=== PATIENT | male | born 1950 | race Caucasian/White ===

== ENCOUNTER → 2017-10-23 | Day surgery (SDC) | payer BC, OTHER ==
[~2017-10-23] VITALS: Ht 188 cm; Wt 89.0 kg
[~2017-10-23] MED LIST: ACETAMINOPHEN 325 MG TAB PO PRN; ASPI325T45 PO; ATROPINE SULFATE 0.1 MG/ML 5ML SYR IV PRN; CLR10 PO; FENTANYL CITRATE INJ 50 MCG/1 ML 2 ML VIAL ONE; HEPARIN SOD (PORCINE) 1000 UNIT/ML 10 ML VIAL ONE; LISI-461 PO; LISINOPRIL 5 MG TAB ONE; LPR50X; METO-217 PO; MIDAZOLAM HCL 1 MG/ML 2ML VIAL ONE; NITROGLYCERIN/D5W 100MCG/ML 20ML SYR ONE; NiCARDipine HCL INJ 2.5 MG/ML 10 ML AMP ONE; SODIUM CHLORIDE 0.9% 1000ML 1,000 ML IV SCH; SODIUM CHLORIDE 0.9% 1000ML 250 ML IV PRN
[2017-10-23 08:57] VITALS: BP 138/104; PULSE 83; TEMP 36.8; O2SAT 97; Ht 188 cm; Wt 89.0 kg
--- NOTE | 2017-10-23 12:31 | History & Physical Bridge Note ---
H&P Re-Evaluation Bridge Note: I have examined the patient, reviewed the History & Physical and in the interval since the performance of the History & Physical I have noted the following changes of clinical significance: No changes noted
--- NOTE | 2017-10-23 12:32 | Pre Sedation Assessment ---
Pre Sedation Assessment General Date of Sedation: Oct 23, 2017. Vital Signs Past 12 Hours Date Time Temp Pulse Resp B/P (MAP) Pulse Ox O2 Delivery O2 Flow Rate FiO2 10/23/17 12:25 96 16 146/100 (115) 96 Room Air 10/23/17 08:57 36.8 83 16 138/104 (115) 97 Room Air Review Cardiovascular: no edema, no gallop, no JVD, + irregularly irregular Lungs: chest non-tender Pre-Sedation Airway Assessment Hx of Sleep Apnea: No Short Thick Neck: No Thyro-mental Distance: > 3 Finger Breadths Oral Cavity: WNL Mallampati Classification: Class III ASA Classification: Class II NPO Status Date of Last Intake of Fluids: Oct 23, 2017 Time of Last Intake of Fluids: 1999 Date of Last Intake of Solids: Oct 22, 2017 Time of Last Intake of Solids: 1999 Procedure Planning Contraindications for Sedation: None Notes The planned sedation has been discussed with the patient. Informed Consent was obtained. I have identified the patient, determined the appropriateness of sedation and have assessed the patient immediately prior to the procedure. All medicine(s) and interventions are by my order.
--- NOTE | 2017-10-23 12:49 | [facility] Post Operative Brief Note ---
Preliminary Procedure Note Procedure Date Oct 23, 2017. Pre-Procedure Diagnosis Positive Stress Test, Arrhythmia AUC Score 7 Post-Procedure Diagnosis Normal Coronary Arteries Procedure(s) Performed Coronary Angiography, Left Heart Cath Discount Clerk Dr. Bob Alexander Scaleman(s) Vishal Castellano Estimated Blood Loss <15cc Medication(s) Fentanyl (12.5mcg IV), Heparin (5000u IV), Nicardipine (250mcg intraarterial after sheath insertion and prior to removal), Versed (1mg IV), Lidocaine 1% ( local infiltration) Preliminary Findings Right dominant coronary anatomy Normal coronaries Normal LV function EF 65 % Recommendations Medical therapy and/or Counseling Specimens None Fluids (cc crystalloids) 45 Procedural Complication(s) None
--- NOTE | 2017-10-23 14:27 | Discharge Instructions ---
Discharge Instructions Procedure Procedure Date: Oct 23, 2017. Reason for Visit: Abnormal Stress Test. Discharge Discharge Date: Oct 23, 2017. Discharge Diagnosis: Normal coronaries Last Recorded Wt (Kilograms): 89 Anesthesia Post Anesthesia Instructions: If you have had General Anesthesia or IV Sedation: * Do not drive today. * Resume driving when surgeon permits. * Do not make important decisions or sign legal documents today. * Call surgeon for: 1. Temperature elevations greater than 101 degrees F. 2. Uncontrollable pain. 3. Excessive bleeding. 4. Persistent nausea and vomiting. 5. Medication intolerance (nausea, vomiting or rash). * For nausea and vomiting use only clear liquids such as: tea, soda, bouillon until nausea subsides, then gradually increase diet as tolerated. * If you have any concerns or questions, call your surgeon's office. If physician is unavailable and it is an emergency, call 911 or go to the nearest emergency room. Instructions Activity Recommendations: limitations as noted below Recommended Home Diet: resume previous diet Provider Instructions ACTIVITY RECOMMENDATIONS: Excess manipulation of the wrist should be avoided for the next 24-48 hours. * No lifting over 2 pounds (approximately a 1/2 gallon of milk) with the utilized arm for 24 hours. * No strenuous activity such as bowling or tennis for 3 days. * Keep the site of the procedure covered with a bandage for 24 hours. *You may shower the day after the procedure. Do not take a tub bath or submerge the puncture site in water for the next 3 days. *Do not operate any motorized equipment for 3 days. SPECIAL CARE INSTRUCTIONS: The site may be slightly bruised and sore following your procedure. Should any of the following occur, contact the Dr. who performed your procedure. 1. Redness/inflammation, swelling, chills, or fever, or colored drainage at procedure site within 3-7 days after your procedure. 2. Coldness, discoloration, ongoing numbness, severe pain, or swelling. Expect mild tingling of hand and tenderness at the puncture site for up to three days. If this persists beyond three days, or other symptoms develop, notify the Dr. who performed your procedure. BLEEDING: If the procedure site on your wrist begins to bleed, do not panic 1. Place 1 or 2 fingers firmly just slightly above the insertion site to stop the bleeding. You may be able to feel your pulse as you hold pressure. 2. Lift your finger after 5 minutes to see if the bleeding has stopped. 3. Once the bleeding has stopped, gently wipe the wrist area clean with a bandage. * If the bleeding from your wrist does not stop after 10 minutes, or if there is a large amount of bleeding or spurting, call 911 (do not drive yourself to the hospital). SKIN IRRITATION: * You may experience some redness and/or swelling in the area where radiation was administered. If any skin irritation occurs, please contact your family physician. FOLLOW UP VISIT: Keep any scheduled doctor appointments. Follow Up Additional Instructions: ACTIVITY RECOMMENDATIONS: Excess manipulation of the wrist should be avoided for the next 24-48 hours. * No lifting over 2 pounds (approximately a 1/2 gallon of milk) with the utilized arm for 24 hours. * No strenuous activity such as bowling or tennis for 3 days. * Keep the site of the procedure covered with a bandage for 24 hours. *You may shower the day after the procedure. Do not take a tub bath or submerge the puncture site in water for the next 3 days. *Do not operate any motorized equipment for 3 days. SPECIAL CARE INSTRUCTIONS: The site may be slightly bruised and sore following your procedure. Should any of the following occur, contact the Dr. who performed your procedure. 1. Redness/inflammation, swelling, chills, or fever, or colored drainage at procedure site within 3-7 days after your procedure. 2. Coldness, discoloration, ongoing numbness, severe pain, or swelling. Expect mild tingling of hand and tenderness at the puncture site for up to three days. If this persists beyond three days, or other symptoms develop, notify the Dr. who performed your procedure. BLEEDING: If the procedure site on your wrist begins to bleed, do not panic 1. Place 1 or 2 fingers firmly just slightly above the insertion site to stop the bleeding. You may be able to feel your pulse as you hold pressure. 2. Lift your finger after 5 minutes to see if the bleeding has stopped. 3. Once the bleeding has stopped, gently wipe the wrist area clean with a bandage. * If the bleeding from your wrist does not stop after 10 minutes, or if there is a large amount of bleeding or spurting, call 911 (do not drive yourself to the hospital). SKIN IRRITATION: * You may experience some redness and/or swelling in the area where radiation was administered. If any skin irritation occurs, please contact your family physician. FOLLOW UP VISIT: Keep any scheduled doctor appointments. Follow-up with: Dr Alexander as scheduled Mariza Alejandra Recommendations: Call your doctor if: * Temperature above 101 degrees * Pain not relieved by pain medicine ordered * There is increased drainage or redness from any incision * You have any unanswered questions or concerns. Your Doctors Instructions noted above were prepared by provider Bob Alexander. Patient Signature Section: Patient Instructions Signature Page Jeffrey Mitchell Patient (or Guardian) Signature/Date: I have read and understand the instructions given to me by my caregivers. Caregiver/RN/Doctor Signature/Date: The above-named patient and/or guardian has received patient instructions on this date. + Original Patient Signature Page (only) stays with chart. Please make copy for patient.
[2017-10-23 16:45] VITALS: BP 138/92; PULSE 83; O2SAT 96
--- NOTE | 2017-10-23 23:04 | CARDIAC CATH REPORT ---
INDICATIONS: Exertional dyspnea, fatigue, chronic atrial fibrillation, abnormal stress testing. HISTORY OF PRESENT ILLNESS: The patient is a 67-year-old male who carries a history of chronic atrial fibrillation, past diffuse cardiomyopathy, improved LV systolic function, possibly tachyarrhythmia induced; who was referred for stress testing after presenting with symptoms of increased fatigue and exertional dyspnea. Stress testing was notable for mild hypokinesis at the anterior and apical septum on stress echocardiogram, suggestive of ischemia. The patient only able to walk to very modest level before stopping secondary to symptoms of dyspnea. In light of findings of abnormal stress testing, patient was referred for diagnostic cardiac catheterization. Symptoms are class 3 in severity. He has not manifested any signs or symptoms of congestive heart failure. ACCESS: Right radial artery. CATHETERS: A 6-Liberian long glide sheath, 5-Liberian brachial 3.5, 5-Liberian straight pigtail. CONTRAST: Nonionic x114 mL of Visipaque. Sedation start time 12:03, end 12:25. SEDATION: Versed 1 mg IV and fentanyl 12.5 mcg IV. IV FLUIDS: Normal saline 45 mL. MEDICATIONS: After radial sheath was inserted, patient received 250 mcg of nicardipine with additional similar dose of 250 mcg of nicardipine prior to sheath removal. After central access gained, patient received 5000 units of IV heparin. COMPLICATIONS: None. RESULTS: CORONARY ANGIOGRAPHY: LEFT MAIN: Nearly nonexistent with very short left main and near separate takeoff to left anterior descending and left circumflex. Coronary anatomy is right dominant. LEFT ANTERIOR DESCENDING: Left anterior descending is type 3 in distribution, it gives rise to 2 large septal branches opposite to small first diagonal branch. Three additional small diagonal branches in its mid portion and courses to terminate beyond the apex. Within the left anterior descending, there is no obstructive disease or luminal irregularities. LEFT CIRCUMFLEX: Left circumflex is nondominant, consists of a small first marginal, bifurcating obtuse marginal, trivial AV groove portion. There is no disease in the left circumflex. RIGHT CORONARY ARTERY: The right coronary artery is large and dominant in distribution. It gives rise to a PDA as an early takeoff at the acute margin and continues along the AV groove to give rise to 3 posterior ventricular branches and along atrial branch which reaches up to the pulmonary artery with a trivial pulmonary artery AV fistula with minimal shot. LEFT VENTRICULAR ANGIOGRAPHY: The left ventricle was nondilated. Left ventricular systolic function was hyperdynamic. EF 65% or greater. There were no wall motion abnormalities. There was trace mitral insufficiency. HEMODYNAMICS: Initial aortic root pressure was 134/78 with a mean of 104. LV pressure was 124/13 with an LVEDP of 14. Following completion of procedure, aortic root final pressure was 149/90 with a mean of 118. RADIATION EXPOSURE: 2.3 minutes of fluoroscopy, milligrays 872 with a DAP score of 5451. FINAL IMPRESSIONS: 1. Right dominant coronary anatomy with normal coronaries. 2. Normal left ventricular systolic function. EF greater than 65%. RECOMMENDATIONS: Continued risk factor modification, treatment of underlying atrial fibrillation with rate control. Patient will consider anticoagulation possible trial attempt to return to sinus rhythm [facility]
== END | disposition home or self-care (01) ==
LOC: C.CATH 08:03
PROVIDERS: ATTEND Internal Medicine Cardiovascular Disease
DX: R94.39 Abnormal result of other cardiovascular function study (principal); I48.2 Chronic atrial fibrillation; I10 Essential (primary) hypertension; I51.9 Heart disease, unspecified; Z79.82 Long term (current) use of aspirin; Z79.899 Other long term (current) drug therapy

== ENCOUNTER 2019-05-11 08:07 | Inpatient (IN) ==
[2019-05-11 10:57] LABS: Creatinine Clr Calc Pharmacy 61.1 ml/min; Est GFR (African American) 64.2; Est GFR (Non-African American) 55.4
[2019-05-11] MEDS: SOTALOL HCL 80 MG TAB PO SCH ×2 (11:13→20:44)
[2019-05-11] MEDS ORDERED: Nursing to Pharmacy Communication ONE (17:20)
[2019-05-11] MEDS: APIXABAN 5 MG TABLET PO SCH (20:44)
[2019-05-11] MEDS ORDERED: APIXABAN 5 MG TABLET PO SCH (21:00)
--- NOTE | 2019-05-11 22:01 | History & Physical Report ---
Date of Service May 11, 2019 Assessment & Plan (1) Atrial fibrillation: History of Present Illness Chief Complaint: fatige and SOB Pt admited for elective sotalol initiation and possible DCCV due to symptomatic persistent AF with symptoms of increased fatigue and STARKS. No chest pains, lightheadedness, dizziness or near syncope. Primary Care Provider: Todd Parikh DO Allergies Allergy/AdvReac Type Severity Reaction Status Date / Time pollen extracts Allergy Mild Sneezing Verified 05/11/19 09:43 Home Medications Home Medications Medication Instructions Recorded Confirmed Type Metoprolol Tartrate 75 mg PO BID #0 10/23/17 05/11/19 History Lisinopril 10 mg PO DAILY 05/11/19 05/11/19 History amlodipine 2.5 mg PO DAILY 05/11/19 05/11/19 History apixaban [Eliquis] 5 mg PO BID 05/11/19 05/11/19 History furosemide 20 mg PO DAILY 05/11/19 05/11/19 History Past Med/Surg History Medical History Atrial fibrillation Basal cell carcinoma 2007 - on forehead Hepatitis A 1961 Surgical History Hx of tonsillectomy 1950 Family History Father Leukemia Social History Preferred Language: Arabic Communication Ability: Effective Flavoring Maker Required: No Beliefs That Will Affect Care: None Current Living Situation: Family Other Information That Helps Us Care for You: No Feels Safe at Home: Yes Safety Concerns: Feels Safe At This Time Smoking Status: Never smoker Hx Alcohol Use: Yes Hx Substance Use: No Review of Systems Review of Systems: All systems reviewed & are unremarkable except as noted in HPI & below Physical Exam Physical Exam: aaox3, NAD NC/AT, EOMI Supple No JVD irregular/irregular S1/S2, No murmur CTA b/l no w/r/r soft nt/nd no LE edema b/l skin intact no focal deficits Results & Data Vital Signs (Past 12 Hours) Vital Signs Temp Pulse Pulse Resp BP Pulse Ox 05/11/19 19:23 36.6 C 81 18 117/77 97 05/11/19 16:00 76 05/11/19 15:46 36.9 C 74 16 123/82 97 05/11/19 11:49 36.9 C 86 18 128/72 95 Telemetry AF 70s
[2019-05-12 06:56] LABS: Creatinine Clr Calc Pharmacy 69.1 ml/min; Est GFR (African American) 74.6; Est GFR (Non-African American) 64.3
[2019-05-12] MEDS: APIXABAN 5 MG TABLET PO SCH ×2 (07:14→19:11)
--- NOTE | 2019-05-12 07:35 | Anesthesiology Consultation ---
Date of Service May 12, 2019 Assessment & Plan (1) Encounter for pre-operative examination: Chart Review Chart Review: Acceptable Risk for Surgery and Patient NOT seen in Pre Admission Testing Consults Requested none History Surgery Operation Date: 05/12/19 07:45 Proposed Procedures p Cardioversion Package Worker w/Anesthesia - Veronica Bates DO Height/Weight Height: 6 ft 2 in Weight: 89.5 kg Allergies Allergy/AdvReac Type Severity Reaction Status Date / Time pollen extracts Allergy Mild Sneezing Verified 05/11/19 09:43 Medications Home Medications Medication Instructions Recorded Confirmed Last Taken Metoprolol Tartrate 75 mg PO BID #0 10/23/17 05/11/19 05/10/19 20:00 75 MG Lisinopril 10 mg PO DAILY 05/11/19 05/11/19 05/10/19 10 mg amlodipine 2.5 mg PO DAILY 05/11/19 05/11/19 05/10/19 20:00 apixaban [Eliquis] 5 mg PO BID 05/11/19 05/11/19 05/11/19 07:30 5 mg furosemide 20 mg PO DAILY 05/11/19 05/11/19 05/10/19 20:00 20 mg Active Medications Generic Name Dose Route Start Last Admin Trade Name Freq PRN Reason Stop Dose Admin Apixaban 5 mg 05/11/19 19:30 05/12/19 07:14 Eliquis PO 06/10/19 19:29 5 mg BID@0730,1930 NOE Administration Sotalol HCl 80 mg 05/11/19 10:00 05/11/19 20:44 Betapace PO 06/10/19 09:59 80 mg BID NOE Administration Past Medical History Medical History Atrial fibrillation Basal cell carcinoma 2007 - on forehead Hepatitis A 1961 Past Family History Family History Father Leukemia Past Surgical History Surgical History Hx of tonsillectomy 1950 Social History Smoking Status: Never smoker Hx Alcohol Use: Yes alcohol intake frequency: a few times a week Hx Substance Use: No Physical Exam Vital Signs Last Vital Signs Temp 37.0 C 05/12/19 07:00 Pulse 66 05/12/19 07:00 Resp 19 05/12/19 07:00 BP 145/92 H 05/12/19 07:00 Pulse Ox 98 05/12/19 07:00 Testing Laboratory Results 05/12/19 05:39 Electrocardiogram Date: 05/12/19 Findings: + AFIB @ (75) cannot rule out ant infarct
--- NOTE | 2019-05-12 07:43 | History & Physical Bridge Note ---
Date of Service May 12, 2019 History & Physical Bridge Note I have examined the patient, reviewed the History & Physical and in the interval since the performance of the History & Physical I have noted the following changes of clinical significance: pt has not missed any eliquis in over 3 weeks, he got 2 doses of sotalol is still in AF for DCCV today.
--- NOTE | 2019-05-12 07:46 | Operative Report ---
Post Operative Report Pre & Post Diagnosis Operation Date: 05/12/19 07:45 <No data on this case meets the specified criteria> Procedure Operation Date: 05/12/19 07:45 Actual Procedures p Cardioversion - Veronica Bates DO Surgeon Veronica Bates, Sample Case Porter none Estimated Blood Loss 0 Findings Consistent with Post-Op Diagnosis Specimens none Description of Procedure see official report I attest to the content of the Intraoperative Record and any orders documented therein. Any exceptions are noted below.
[2019-05-12] MEDS ORDERED: PROPOFOL IV EMULSION 10 MG/ML 20 ML VIAL IV ONE (07:53)
[2019-05-12] MEDS ORDERED: LIDOCAINE HCL 2% MPF (LOCAL) 5 ML VIAL INFIL ONE (07:54)
--- NOTE | 2019-05-12 07:55 | Anesthesiology Progress Note ---
Date of Service May 12, 2019 Anesthesia Post Procedure Vital Signs Vital Signs: Temp Pulse Pulse Pulse Resp BP BP 05/12/19 07:00 37.0 C 66 19 145/92 H 05/12/19 03:38 36.7 C 84 19 125/78 05/11/19 23:32 76 05/11/19 23:17 36.9 C 66 17 124/79 05/11/19 19:23 36.6 C 81 18 117/77 05/11/19 16:00 76 05/11/19 15:46 36.9 C 74 16 123/82 05/11/19 11:49 36.9 C 86 18 128/72 05/11/19 09:07 36.7 C 88 16 102/70 Pulse Ox 05/12/19 07:00 98 05/12/19 03:38 98 05/11/19 23:32 05/11/19 23:17 96 05/11/19 19:23 97 05/11/19 16:00 05/11/19 15:46 97 05/11/19 11:49 95 05/11/19 09:07 98 Transfer of Care Handoff Completed per policy Notes Mental Status: alert / awake / arousable Patient Amnestic to Procedure: Yes Nausea / Vomiting: adequately controlled Pain: adequately controlled Airway Patency, RR, SpO2: stable & adequate BP & HR: stable & adequate Hydration State: stable & adequate Anesthetic Complications: no major complications apparent and Pt Satisfied with anesthetic care Notes: The patient is awake and moving all extremities.
[2019-05-12] MEDS: SOTALOL HCL 80 MG TAB PO SCH ×2 (10:08→21:27)
[2019-05-12] MEDS: FUROSEMIDE 20 MG TAB PO SCH (10:09)
[2019-05-12] MEDS ORDERED: Nursing to Pharmacy Communication ONE (10:45)
--- NOTE | 2019-05-12 11:15 | Discharge Summary ---
Date of Service May 14, 2019 Admission HPI Per Admitting Provider pt admitted with persistent AF symptomatic Admission Exam Per Admitting Provider aaox3, NAD NC/AT, EOMI Supple No JVD irregular/irregular S1/S2, No murmur CTA b/l no w/r/r soft nt/nd no LE edema b/l skin intact no focal deficits Principal Diagnosis paf s/p sotalol and DCCV initiation Discharge Exam aaox3, NAD NC/AT, EOMI Supple No JVD Nrl S1/S2, No murmur CTA b/l no w/r/r soft nt/nd no LE edema b/l skin intact no focal deficits Discharge Data Allergies Allergy/AdvReac Type Severity Reaction Status Date / Time pollen extracts Allergy Mild Sneezing Verified 05/11/19 09:43 Procedures Performed Operation Date: 05/12/19 07:45 Actual Procedures p Cardioversion - Veronica Bates DO Total Time Total Time Spent Total Time Spent (In Minutes): 30 Total Time Includes: Examination of the Patient, Discharge Planning, Medication Reconciliation and Other Discharge Plan Discharge Items Patient Disposition: Home - Self-Care Reason For Visit: AFIB Discharge Diagnosis: Proximal atrial fibrillation status post synchronized electrical cardioversion, initiate antiarrhythmic therapy with sotalol Condition: Good Discharge Goals: Improve function Activity: Resume your previous activity Lifting: None Bathing: No limitations Non-emergency contact: Local Hazmat Driver Call non-emergency contact if: you have any medication questions Follow-up/Referrals: Todd Parikh DO [Primary Care Provider] - Diet: Heart Healthy Addtl Provider Instructions: f/u with Dr. Bates as scheduled in 1 month Prescriptions: New sotalol 80 mg Tablet 40 mg PO BID Qty: 90 RF: 0 Continued Eliquis 5 mg Tablet 5 mg PO BID RF: 0 Lisinopril 10 MG tablet 10 mg PO DAILY RF: 0 amlodipine 2.5 mg Tablet 2.5 mg PO DAILY RF: 0 furosemide 20 mg Tablet 20 mg PO DAILY RF: 0 Discontinued Metoprolol Tartrate 50 MG tablet 75 mg PO BID Qty: 0 RF: 0 Stand-Alone Forms: [facility] Discharge Orders: Discharge Order (Routine); Ordered 05/14/19 Ordered By: Bob Alexander Admission Data Admit Date/Time: 05/11/19 08:42 Attending Provider: Veronica Bates Admit Provider: Veronica Bates Primary Care Provider: Todd Parikh Service: Telemetry Other Interventions: Discharge Summary Assessment (RN) Last Done: 05/14/19 09:16 DC Date/Time DO NOT enter until pt leaves facility: 05/14/19 09:45
[2019-05-12] MEDS: LISINOPRIL 10 MG TAB PO SCH (21:27)
[2019-05-12] MEDS: AMLODIPINE BESYLATE 5 MG TAB PO SCH (21:27)
[2019-05-13 06:41] LABS: Creatinine Clr Calc Pharmacy 72.3 ml/min; Est GFR (African American) 78.7; Est GFR (Non-African American) 67.9
[2019-05-13] MEDS: FUROSEMIDE 20 MG TAB PO SCH (08:17)
[2019-05-13] MEDS: APIXABAN 5 MG TABLET PO SCH ×2 (08:17→20:39)
[2019-05-13] MEDS ORDERED: Nursing to Pharmacy Communication ONE ×2 (10:15→10:45)
[2019-05-13] MEDS: SOTALOL HCL 80 MG TAB PO SCH ×3 (10:33→20:40)
[2019-05-13] MEDS ORDERED: ACETAMINOPHEN 325 MG TAB PO PRN (11:01)
--- NOTE | 2019-05-13 15:05 | Cardiology Progress Note ---
Date of Service May 13, 2019 Assessment & Plan (1) Atrial fibrillation: No recurrence since cardioversion yet (2) Encounter for monitoring anti-arrhythmic therapy: Will reduce sotalol 40 mg twice per day given first-degree AV block and bradycardia Subjective Patient seen and examined. No cardiac complaints. Notes chronic back and right flank pain exacerbated by current bed. Notes no dizziness or lightness notes no syncope or near syncope. No fevers or chills. Telemetry reviewed demonstrates no recurrence of atrial fibrillation but patient relatively bradycardic Review of Systems Review of Systems: All systems reviewed & are unremarkable except as noted in HPI & below Physical Exam Constitutional: WD/WN, vitals as above Eyes: PERRL, conjunctivae normal, anicteric sclerae ENMT: external ear and nose normal, oropharynx normal Neck: trachea midline, no thyromegaly Respiratory: normal respiratory effort, lungs clear to auscultation Cardiovascular: Rate/Rhythm: regular rate, regular rhythm and + bradycardic Heart Sounds: normal S1 and normal S2; no gallop and no murmur Palpation: normal PMI Vessels: normal carotid upstroke and radial pulses present; no JVD and no carotid bruit Extremities: no edema Gastrointestinal (Abdomen): normal bowel sounds, soft, nontender, no hepatosplenomegaly Musculoskeletal: no cyanosis or clubbing, extremities motor strength 5/5 Skin: no rashes, warm and dry Neurologic: PERRL, EOMI, accommodation nl, no face palsy, no dysarthria Psychiatric: A+Ox3, euthymic affect Results & Data Vital Signs (Past 12 Hours) Vital Signs Temp Pulse Pulse Resp BP Pulse Ox 05/13/19 11:45 36.9 C 68 16 119/63 96 05/13/19 08:00 54 L 05/13/19 07:41 37.0 C 62 16 109/74 97 05/13/19 03:58 36.4 C L 51 L 20 102/55 L 98 Laboratory Results Laboratory Results - last 24 hr 05/13/19 05:34 Creatinine 1.09 Est Cr Clr Drug Dosing 72.3 Est GFR ( Amer) 78.7 Est GFR (Non-Af Amer) 67.9 Diagnostic Findings 13-MAY-2019 06:16:42 [facility]-D ROUTINE RETRIEVAL Sinus bradycardia with 1st degree A-V block Possible Left atrial enlargement Low voltage QRS Cannot rule out Anterior infarct (cited on or before 11-MAY-2019) Abnormal ECG When compared with ECG of 12-MAY-2019 07:49, UT interval has increased
[2019-05-13] MEDS: LISINOPRIL 10 MG TAB PO SCH (20:41)
[2019-05-13] MEDS: AMLODIPINE BESYLATE 5 MG TAB PO SCH (20:41)
[2019-05-14 06:37] LABS: Creatinine Clr Calc Pharmacy 74.3 ml/min; Est GFR (African American) 81.4; Est GFR (Non-African American) 70.3
[2019-05-14] MEDS: APIXABAN 5 MG TABLET PO SCH (08:09)
[2019-05-14] MEDS: SOTALOL HCL 80 MG TAB PO SCH (08:10)
[2019-05-14] MEDS: FUROSEMIDE 20 MG TAB PO SCH (08:10)
--- NOTE | 2019-05-14 11:29 | Discharge Summary ---
DISCHARGE DIAGNOSES: 1. Paroxysmal atrial fibrillation/flutter. 2. Status post successful synchronized electrical cardioversion. 3. Hypertension. OPERATIONS AND PROCEDURES: Synchronized electrical cardioversion on 05/12/[address] Bates. Discharged to home. HOME MEDICATIONS ON DISCHARGE: Sotalol 40 mg p.o. b.i.d. as a new medication, Eliquis 5 mg p.o. every day, amlodipine 2.5 mg p.o. daily, lisinopril 10 mg p.o. every day, furosemide 20 mg p.o. every day on a p.r.n. basis. SPECIAL INSTRUCTIONS: Resume usual activities cautiously, continue current diet. Follow up with Dr. Alexander and Dr. Bates as previously arranged. Report any new symptoms of tachy-palpitations, dizziness or lightheadedness. BRIEF HISTORY: The patient is a 69-year-old male with history of atrial fibrillation with difficult to control ventricular response rates. The patient was having symptoms of marked fatigue and malaise with current dosing of rate control. He was referred for inpatient management including initiation of antiarrhythmic therapy. HOSPITAL COURSE: The patient was admitted to the progressive care unit and maintained on telemetry. He was begun initially on sotalol 80 mg twice per day and on 05/12/2019 underwent synchronized electrical cardioversion returning patient to sinus/sinus bradycardia. The patient tolerated sotalol without QT prolongation; however, became bradycardic on 80 mg twice per day, dose was reduced to 40 mg twice per day with good tolerance. On date of discharge the patient was ambulatory in the hallway without complaints. PLAN: Followup as noted. Continue full anticoagulation with Eliquis. Prescriptions forwarded to patient's pharmacy prior to discharge.
--- NOTE | 2019-05-26 21:21 | Operative Report ---
DATE OF OPERATION: 05/12/2019 PREOPERATIVE DIAGNOSIS: Persistent atrial fibrillation, symptomatic. POSTOPERATIVE DIAGNOSIS: Sinus bradycardia. PROCEDURE: Synchronized cardioversion. SURGEON: Veronica Bates DO FEED HANDLER: None. ANESTHESIA: Monitored anesthetic care administered via anesthesiology. Total of 70 mg of propofol, 50 mg of lidocaine. COMPLICATIONS: None. CONDITION: Stable. URINE OUTPUT: None. SPECIMENS: None. FINDINGS: See below. DRAINS: None. BLOOD LOSS: None. INDICATIONS: This is a 69-year-old gentleman with past medical history for persistent atrial fibrillation diagnosed in 2016 on beta brian and Eliquis, CHADS2-VASc score of 2 for hypertension and age. Past medical history also includes hypertension, mild mitral regurgitation, tricuspid regurgitation, aortic insufficiency, history of basal cell carcinoma, and bilateral hearing loss. He has been noticing more symptoms with his AFib and so wanted to consider synchronized cardioversion to restore sinus rhythm with sotalol initiation. He got 2 doses of sotalol prior to the cardioversion. CONSENT: Consent was obtained prior to the patient going into the electrophysiology lab. The patient was informed of the risks, benefits, and alternatives of the procedure. Risks include but not limited to sudden cardiac , cardiac arrhythmias, cerebrovascular accident, ____ redness on the skin. The patient understood these risks and agreed to the procedure as planned. Informed consent was obtained. DESCRIPTION OF THE PROCEDURE: The patient was brought into the electrophysiology lab in a fasting state. He was connected to continuous satellite project site monitor. A timeout was performed to ensure patient identity and procedure correctly. The patient then received anesthetic monitored anesthetic care via anesthesiology and then received a 200 joule synchronized shock to restore to sinus adamaris successfully. He woke up without any problems. PLAN: He will continue to be monitored in the hospital for additional sotalol dosing and then discharged home and follow up with me in 1 month's time and he knows not to miss 1 dose of Eliquis at least for the next month. I attest to the content of the Intraoperative Record and any orders documented therein. Any exception s are noted below.
== END 2019-05-14 09:45 | disposition home or self-care (01) | DRG 310 ==
LOC: 2S 08:42

== ENCOUNTER 2025-06-08 11:44 | Inpatient (IN) ==
[2025-06-08 12:29] LABS: Hematocrit (blood only) 39.5 % (42.0-52.0); Hemoglobin 13.7 g/dl (14.0-18.0); Immature Granulocytes # (auto) 0.06 K/uL (0.01-0.20); Immature Granulocytes % (auto) 0.6 %; Mean Corpuscular Hemoglobin 34.9 pg (25.0-34.0); Mean Corpuscular Volume 100.8 fL (80.0-100.0); Platelet Count 168 K/uL (130-400); RDW Standard Deviation 45.9 fL (36.4-46.3); Red Blood Count 3.92 M/uL (4.70-6.10); White Blood Count 10.60 K/ul (4.8-10.8)
[2025-06-08 12:44] LABS: Alanine Aminotransferase 9.0 U/L (7-52); Albumin Globulin Ratio 1.3 (0.9-2); Alkaline Phosphatase 74.0 U/L (34-104); Anion Gap 9.0 (3-11); Bilirubin,Total 1.4 mg/dl (0.2-1.0); Blood Urea Nitrogen 8.0 mg/dl (6-23); Calcium 9.2 mg/dl (8.6-10.3); Carbon Dioxide 25.0 mmol/L (21-32); Chloride 99.0 mmol/L (98-107); Creatinine Clr Calc Pharmacy 76.8 ml/min; Globulin 3.1 gm/dl (2.5-4.0); Glucose 103.0 mg/dl (70-99(Fasting)); Potassium 3.9 mmol/L (3.5-5.1); Sodium 133.0 mmol/L (136-145); Total Protein 7.1 gm/dl (6.0-8.3)
--- NOTE | 2025-06-08 13:04 | XRay Report ---
XR chest 1V not portable CLINICAL HISTORY: Chest pain, nonspecific COMPARISON STUDY: Chest radiograph October 02, 2022. FINDINGS: Left subclavian pacer is in place. Low lung volumes are noted. There is no pneumothorax. Th ere may be trace bilateral pleural effusions. Left basilar opacities are present. There is pulmonary vascular congestion. IMPRESSION: 1. Cardiomegaly with pulmonary vascular congestion. 2. Possible small bilateral pleural effusions. 3. Left basilar densities which may represent pneumonia or atelectasis. Radiographic follow-up is rec ommended. ACT 112: Negative or not required by law. Electronically signed by: Abhishek Valdez M.D. 06/08/2025 1:03 PM
[2025-06-08 13:08] LABS: INR 1.0 (0.9-1.1); Partial Thromboplastin Time 34 Seconds (21-31); Prothrombin Time 11.0 Seconds (9.0-12.0)
[2025-06-08] MEDS: FUROSEMIDE 40 MG/4 ML VIAL IV ONE (14:19)
--- NOTE | 2025-06-08 14:43 | Emergency Department Note ---
Impression & Plan STARKS (dyspnea on exertion), CHF (congestive heart failure), Orthopnea, Bilateral edema of lower extremity ED Provider Note ED Provider Note NAME: CLAUDIO ANGEL AGE:75 SEX: Male : 1950 ARRIVES VIA: private vehicle INFORMANT: Patient ED PROVIDER(s): Anitha Toledo DO CHIEF COMPLAINT: Dyspnea on exertion, orthopnea, leg swelling HPI: This is a 75-year-old male who presents to the emergency department due to concern for increasing leg swelling, dyspnea on exertion, and orthopnea. Patient states he was found to have atrial fibrillation several weeks ago and his sotalol dose was increased. He is anticoagulated already. He does follow with Dr. Dumont of cardiology. He states he has noticed over the last few weeks has had increased lower extremity swelling, abdominal distention, and in the last several nights has been unable to lay flat to sleep. He denies any prior history of congestive heart failure and does not routinely use a diuretic. He denies any recent fevers, chills, URI symptoms. He states he has had a decrease in his appetite and is felt lightheaded/dizziness. He states he is scheduled to see cardiology in June. He states the atrial fibrillation was originally found several years ago, he was cardioverted at that time and states he has been fine since. He states they did place a pacemaker at that time. PAST MEDICAL HISTORY:See Below PAST SURGICAL HISTORY:See Below FAMILY HISTORY:See Below SOCIAL HISTORY:See Below HOME MEDICATIONS:See Below ALLERGIES:See Below VITALS:See Below PHYSICAL EXAMINATION: GENERAL: alert, well appearing, well nourished, no distress, non-toxic EYE EXAM: normal conjunctiva, PERRL and EOM's grossly intact OROPHARYNX: no exudate, no erythema, lips, buccal mucosa, and tongue normal and mucous membranes are moist NECK: supple, no nuchal rigidity, no adenopathy, non-tender LUNGS: Clear to auscultation. Normal chest wall mechanics, no w/r, fine bibasilar rales, conversational dyspnea HEART: no murmurs, S1 normal and S2 normal ABDOMEN: abdomen soft, non-tender, normo-active bowel sounds, no masses, no rebound or guarding. SKIN: no rashes, petechiae, orbruising UPPER EXTREMITIES: upper extremities are grossly normal. FROM, nml pulses b/l. LOWER EXTREMITIES: 3+ b/l pitting edema. FROM, nml pulses b/l. NEURO EXAM: Normal sensorium, cranial nerves II-XII grossly intact, normal speech, no facial droop,nogross weakness of arms, no gross weakness of legs. Gross sensation intact. No ataxia. Vital Signs: reviewed and remarkable Differential Diagnosis: pneumonia, bronchitis, COPD/Asthma exacerbation, pneumothorax, pulmonary embolism, congestive heart failure, acute coronary syndrome, as well as others were considered MEDICAL DECISION MAKING: This is a 75-year-old male who presents to the emergency department due to concern for increased lower extremity edema, increased dyspnea on exertion, and worsening orthopnea after recent increase in his sotalol to help control recurrent atrial fibrillation. Patient with a prior history of atrial fibrillation. He was afebrile and vital signs were stable on arrival. Labs are drawn and sent, IV established, EKG and chest x-ray performed at bedside and interpreted by me and the patient was monitored on telemetry. Patient's EKG here appeared paced. Patient with marked bilateral lower extremity edema. Patient is anticoagulated due to his history and I have a low suspicion for occult DVT/PE. Given increased edema and reported dyspnea on exertion and orthopnea, I suspect evolving congestive heart failure. Patient's troponin negative. Patient noted to have an elevated BNP on labs involving pulmonary edema on chest x-ray. Patient does not routinely use a diuretic was given 1 dose of IV Lasix on the emergency department. Due to concern for worsening symptoms in the last 3 weeks as well as conversational dyspnea even present at rest, case discussed with the hospitalist team for additional inpatient evaluation and management. Consultation(s): 1505: Discussed with Keo Dove hospitalist team, for additional evaluation and management. ER Treatment Provided: See below Diagnostics Interpreted By Me: -ECG: Paced at 95, leftward axis, normal intervals, nonspecific ST/T wave changes -Cardiac Monitoring: An order was placed for continuous cardiac monitoring. The monitor shows a rate of 88 with paced rhythm. -Laboratory studies: As stated above and show below. -Imaging studies: X-ray Chest: A single view study of the chest was reviewed and was negative for cardiomegaly, focal infiltrate, effusion, or wide mediastinum. Increased interstitial markings noted bilateral lower lobes suggestive of evolving pulmonary edema. Triage Nursing Note Reviewed Prior/Outside Records Reviewed- EKG from June 25, 2024, paced at 88, normal axis, normal intervals; dobutamine stress echo from December 2024 showed an LVEF of 55 to 59%, LV wall thickness is mildly increased (concentric), moderate aortic valve sclerosis, mild aortic valve regurgitation, mild tricuspid regurgitation, no pulmonary hypertension. No evidence of ischemia during the stress EKG. Past Med/Surg History Problem List (Updated 06/08/25 @ 14:42 by Anitha Toledo DO) Bilateral edema of lower extremity (Acute) Orthopnea (Acute) CHF (congestive heart failure) (Acute) STARKS (dyspnea on exertion) (Acute) Abnormal gallbladder ultrasound Peripheral neuropathy Sensory ataxia Encounter for pre-operative examination Atrial fibrillation Pt admitted with persistent AF-symptomatic. He was started on sotalol. Cardioverted to SR. Continued to be monitored for sotalol load. His rhythm remained SB in 50s but not symptomatic. He continued on eliquis. He was discharged home after 7th dose since the 6th was late in the evening. Encounter for pre-operative examination Encounter for monitoring anti-arrhythmic therapy Lumbar radiculopathy HTN (hypertension) taken off meds due to low blood pressure SSS (sick sinus syndrome) Medical History Atrial fibrillation Basal cell carcinoma Chronic shortness of breath GERD (gastroesophageal reflux disease) Hepatitis A HTN (hypertension) Hx of aneurysm Hx of cardiac pacemaker Hypotension Sleep apnea SSS (sick sinus syndrome) Surgical History History of esophagogastroduodenoscopy (EGD) History of right cataract extraction Hx of angioplasty Hx of cardiac catheterization Hx of colonoscopy Hx of tonsillectomy Family History Father Leukemia Heart disease Son Colorectal cancer Uncle Diabetes Grandmother (Paternal) Stroke Social History Smoking Status: Never smoker Second Hand Exposure: No; Do You Dip or Chew Tobacco: No; Hx Alcohol Use: Yes Alcohol type: hard liquor Hx Substance Use: No Preferred Language: Nigerian Communication Ability: Effective Guillotine Trimmer Required: No Beliefs That Will Affect Care: None marital status: Current Living Situation: Family How many Children do You have: 3 Other Information That Helps Us Care for You: No Feels Safe at Home: Yes Safety Concerns: Feels Safe At This Time Diet: regular during the past year weight has: remained stable Assistive Devices: Hearing Aid - Bilateral Allergies Allergies Allergy/AdvReac Type Severity Reaction Status Date / Time pollen extracts Allergy Mild Sneezing Verified 08/23/22 10:24 Home Meds Home Medications Medication Instructions Recorded Confirmed apixaban 5 mg tablet (Eliquis) 5 mg PO BID 05/11/19 06/08/25 mecobalamin (vitamin B12) 1,000 1,000 mcg PO DAILY 01/16/21 06/08/25 mcg chewable tablet (B12 Active) trazodone 50 mg tablet 100 mg PO HS 01/16/21 06/08/25 aspirin 81 mg capsule 81 mg PO QAM 03/15/22 06/08/25 folic acid 1 mg tablet 1 mg PO HS 03/15/22 06/08/25 rosuvastatin 5 mg tablet 5 mg PO HS 03/15/22 06/08/25 amlodipine 2.5 mg tablet 2.5 mg PO DAILY 06/08/25 06/08/25 sotalol 80 mg tablet 80 mg PO BID 06/08/25 06/08/25 Results & Data (ED) Vital Signs Vital Signs - 24 hr 06/08/25 11:49 06/08/25 13:46 06/08/25 14:00 Temperature 36.5 C Temperature Source Temporal Artery Scan Pulse Rate 106 H 69 Pulse Rate [Apical] 81 Pulse Rate from SpO2 Sensor Respiratory Rate 18 18 Respiratory Effort / Characteristics Non-Labored Spontaneous Non-Labored Spontaneous Respiratory Depth Normal Normal Respiratory Pattern Regular Regular Blood Pressure 141/90 H Blood Pressure [Right Arm] 153/91 H Blood Pressure Mean 107 Blood Pressure Mean [Right Arm] 111 Blood Pressure Position Sitting Pulse Oximetry 96 99 Oxygen Delivery Method Room Air Room Air Sepsis Recent Fever Within 48 Hours No Sepsis New/Unexplained Change in Mental Status N/A Sepsis Action Taken by Nursing No Action Required 06/08/25 14:00 06/08/25 14:12 06/08/25 14:20 Temperature Temperature Source Pulse Rate 79 89 Pulse Rate [Apical] Pulse Rate from SpO2 Sensor 87 84 Respiratory Rate 19 24 Respiratory Effort / Characteristics Respiratory Depth Respiratory Pattern Blood Pressure Blood Pressure [Right Arm] 154/101 H Blood Pressure Mean Blood Pressure Mean [Right Arm] 118 Blood Pressure Position Pulse Oximetry 98 99 Oxygen Delivery Method Sepsis Recent Fever Within 48 Hours Sepsis New/Unexplained Change in Mental Status Sepsis Action Taken by Nursing 06/08/25 14:21 06/08/25 14:21 06/08/25 14:21 Temperature Temperature Source Pulse Rate Pulse Rate [Apical] Pulse Rate from SpO2 Sensor Respiratory Rate Respiratory Effort / Characteristics Respiratory Depth Respiratory Pattern Blood Pressure 154/101 H 154/101 H 154/101 H Blood Pressure [Right Arm] Blood Pressure Mean 124 124 124 Blood Pressure Mean [Right Arm] Blood Pressure Position Pulse Oximetry Oxygen Delivery Method Sepsis Recent Fever Within 48 Hours Sepsis New/Unexplained Change in Mental Status Sepsis Action Taken by Nursing 06/08/25 14:21 06/08/25 14:45 06/08/25 14:51 Temperature Temperature Source Pulse Rate 88 88 85 Pulse Rate [Apical] Pulse Rate from SpO2 Sensor 88 86 81 Respiratory Rate 23 23 23 Respiratory Effort / Characteristics Respiratory Depth Respiratory Pattern Blood Pressure Blood Pressure [Right Arm] Blood Pressure Mean Blood Pressure Mean [Right Arm] Blood Pressure Position Pulse Oximetry 99 98 99 Oxygen Delivery Method Sepsis Recent Fever Within 48 Hours Sepsis New/Unexplained Change in Mental Status Sepsis Action Taken by Nursing 06/08/25 15:08 06/08/25 15:10 06/08/25 15:12 Temperature Temperature Source Pulse Rate 85 Pulse Rate [Apical] Pulse Rate from SpO2 Sensor Respiratory Rate 18 Respiratory Effort / Characteristics Respiratory Depth Respiratory Pattern Blood Pressure 152/87 H Blood Pressure [Right Arm] Blood Pressure Mean 100 Blood Pressure Mean [Right Arm] Blood Pressure Position Pulse Oximetry 97 Oxygen Delivery Method Room Air Sepsis Recent Fever Within 48 Hours Sepsis New/Unexplained Change in Mental Status Sepsis Action Taken by Nursing 06/08/25 15:18 Temperature Temperature Source Pulse Rate 90 Pulse Rate [Apical] Pulse Rate from SpO2 Sensor 83 Respiratory Rate 28 H Respiratory Effort / Characteristics Respiratory Depth Respiratory Pattern Blood Pressure Blood Pressure [Right Arm] Blood Pressure Mean Blood Pressure Mean [Right Arm] Blood Pressure Position Pulse Oximetry 98 Oxygen Delivery Method Sepsis Recent Fever Within 48 Hours Sepsis New/Unexplained Change in Mental Status Sepsis Action Taken by Nursing Laboratory Data 06/08/25 19:21 06/08/25 12:13 Lab Results 06/08/25 Range/Units 12:13 WBC 10.60 (4.8-10.8) K/ul RBC 3.92 L (4.70-6.10) M/uL Hgb 13.7 L (14.0-18.0) g/dl Hct 39.5 L (42.0-52.0) % MCV 100.8 H (80.0-100.0) fL MCH 34.9 H (25.0-34.0) pg MCHC 34.7 (32.0-36.0) g/dL RDW Std Deviation 45.9 (36.4-46.3) fL RDW Coeff of Viv 12.5 (11.5-14.5) % Plt Count 168 (130-400) K/uL MPV 9.7 (9.4-12.4) fL Immature Gran % (Auto) 0.6 % Neut % (Auto) 74.0 % Lymph % (Auto) 14.3 % Hartley % (Auto) 9.7 % Eos % (Auto) 0.9 % Baso % (Auto) 0.5 % Neut # (Auto) 7.84 H (1.40-6.50) K/uL Lymph # (Auto) 1.52 (1.20-3.40) K/uL Hartley # (Auto) 1.03 H (0.11-0.59) K/uL Eos # (Auto) 0.10 (0.00-0.50) K/uL Baso # (Auto) 0.05 (0.00-0.20) K/uL Immature Gran # (Auto) 0.06 (0.01-0.20) K/uL PT 11.0 (9.0-12.0) Seconds INR 1.0 (0.9-1.1) APTT 34 H (21-31) Seconds PTT Ratio 1.3 Sodium 133 L (136-145) mmol/L Potassium 3.9 (3.5-5.1) mmol/L Chloride 99 (98-107) mmol/L Carbon Dioxide 25 (21-32) mmol/L Anion Gap 9 (3-11) BUN 8 (6-23) mg/dl Creatinine 0.91 (0.6-1.4) mg/dl Est Cr Clr Drug Dosing 76.8 ml/min eGFR 86.81 BUN/Creatinine Ratio 8.8 L (10-20) Glucose 103 H (70-99(Fasting)) mg/dl Calcium 9.2 (8.6-10.3) mg/dl Total Bilirubin 1.4 H (0.2-1.0) mg/dl AST 16 (13-39) U/L ALT 9 (7-52) U/L Alkaline Phosphatase 74 (34-104) U/L Troponin I High Sens 4.2 (0-20) pg/ml B-Natriuretic Peptide 693 H (0-100) pg/ml Total Protein 7.1 (6.0-8.3) gm/dl Albumin 4.0 (3.4-5.0) gm/dl Globulin 3.1 (2.5-4.0) gm/dl Albumin/Globulin Ratio 1.3 (0.9-2) Administered Medications Apixaban (Apixaban 5 Mg Tablet) 5 mg PO BID NOE Stop: 07/08/25 20:59 Last Admin: 06/08/25 22:09 Dose: 5 mg Documented By: [facility] Furosemide (Furosemide 40 Mg/4 Ml Vial) 40 mg IV [id number] NOE Stop: 07/09/25 06:59 Last Admin: 06/09/25 06:08 Dose: 40 mg Documented By: [facility]CO Sotalol HCl (Sotalol Hcl 80 Mg Tab) 80 mg PO BID NOE Stop: 07/08/25 20:59 Last Admin: 06/08/25 22:09 Dose: 80 mg Documented By: [facility]CO Trazodone HCl (Trazodone Hcl 100 Mg Tab) 100 mg PO HS NOE Stop: 07/08/25 20:59 Last Admin: 06/08/25 22:09 Dose: 100 mg Documented By: ACO Discontinued Medications Furosemide (Furosemide 40 Mg/4 Ml Vial) 40 mg IV ONE ONE Stop: 06/08/25 14:04 Last Admin: 06/08/25 14:19 Dose: 40 mg Documented By: [facility] Imaging Data Radiologist's Impression: Chest X-Ray 06/08/25 11:54 XR chest 1V not portable CLINICAL HISTORY: Chest pain, nonspecific COMPARISON STUDY: Chest radiograph October 02, 2022. FINDINGS: Left subclavian pacer is in place. Low lung volumes are noted. There is no pneumothorax. There may be trace bilateral pleural effusions. Left basilar opacities are present. There is pulmonary vascular congestion. IMPRESSION: 1. Cardiomegaly with pulmonary vascular congestion. 2. Possible small bilateral pleural effusions. 3. Left basilar densities which may represent pneumonia or atelectasis. Radiographic follow-up is recommended. ACT 112: Negative or not required by law. Electronically signed by: Abhishek Valdez M.D. 06/08/2025 1:03 PM Discharge Plan Visit Data Chief Complaint: Shortness of Breath/Dyspnea Stated Complaint: CHEST TIGHTNESS, PAIN SOB TROUBLE SLEEPING AND MIGUEL ED Provider: Anitha Toledo Discharge Problem: STARKS (dyspnea on exertion), CHF (congestive heart failure), Orthopnea, Bilateral edema of lower extremity Patient Disposition: Admitted As Inpatient Condition: Fair Discharge Instructions Interventions: ED Discharge Assessment Last Done: 06/08/25 19:10
--- NOTE | 2025-06-08 15:19 | History & Physical Report ---
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 - Consult cardiology - Obtain echo now - Last echo stress test completed 12/28/24 personally reviewed in [facility], patient underwent stress dobutamine testing in December 2024 which showed an EF of 55 to 59%, moderate aortic valve sclerosis, mild aortic valve regurg, mild tricuspid regurg, no pulmonary hypertension - CXR today shows cardiomegaly with pulmonary vascular congestion, possible left bibasilar density, possible small bilateral pleural effusion. - BNP is 693 - Sotolol 80 mg BID and Eliquis 5 mg BID at home - rate controlled, atrial paced on sotolol. Betablockade was recently increased due to possible worsening PAF about 2 weeks ago. Monitor on tele Alcohol Dependence / Abuse - , reports he drinks 18 oz of hard liquor daily +/- a glass of wine. - WASS protocol, ativan prn, seizure precautions - Cessation will need to be discussed throughout hospital stay Hx of pancreatic duodenal artery aneurysm s/p rerpair - follows with vascular surgery Peripheral neuropathy Gait instability MGUS - Following with neurology as outpatient, Dr. 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 DVT ppx: teds, scds, eliquis BID Lines: PIV x 1 FEN/GI: HH, fluid restriction 1500mL CODE: Full Dispo: From home, likely to remain in the hospital x 1-2 days I spent a total of 78 minutes with greater than 50% of that time face to face with the patient, personally reviewing all current laboratories, imaging studies, past medication reconciliation, outpatient chart review, and discussion with specialists to collaborate care for the patient excluding time spent in the performance of separately billed services or time spent by another provider/QHP. Please see attending documentation for corrections and/or additions. History of Present Illness Chief Complaint: Shortness of breath Primary Care Provider: Todd Parikh DO This is a 75-year-old male with PMHx of paroxysmal A-fib, sick sinus syndrome, history of pacemaker placement, HTN, HLD, MGUS, neuropathy, GERD, BPH, urinary frequency, who presents to the hospital today with worsening acute shortness of breath, increased edema in his lower extremities, noted to be dyspneic with speaking long sentences. His , Sadie is present at bedside and supports the history. Patient reports that he has been taking increased dose of sotalol 80 mg twice daily since about May 22. This was increased secondary to his possible worsening paroxysmal A-fib with flutter/palpitations. In the past 1 week he has noticed worsening edema in bilateral lower extremities, with dyspnea with minimal ADLs, and admits to orthopnea x 2 nights. He typically sleeps with 1 pillow, last evening attempted to use up to 3 pillows and then ended up sitting up in a chair as he felt that he could not breathe at all. He does not wear any supplemental O2 at baseline. Patient does not take any diuretic at baseline. He is compliant with his other medications, although he had been trialed per report on diuretics in the past he has not liked using them due to the amount of urination that occurs secondary to taking them. notes recen t worsening dizziness, gait issues when going from a sitting to standing position, no falls. He does not use any device for ambulation assistance. CXR today shows cardiomegaly with pulmonary vascular congestion, possible left bibasilar density, possible small bilateral pleural effusion. BNP is 693. patient underwent stress dobutamine testing in December 2024 which showed an EF of 55 to 59%, moderate aortic valve sclerosis, mild aortic valve regurg, mild tricuspid regurg, no pulmonary hypertension. In the ER the patient was given Lasix 40 mg IV, at 2:20 PM, in the past 1.5 hours the patient is out at least 1 L of urine. Education was provided at bedside to patient and his to not dump urine without having nursing aware to be able to chart accurate ins and outs. 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 Lives at home with . No tobacco use, no illicit drug use. states that he drinks significant amount of hard liquor on a daily basis. Patient will fill a solo cup at least custodial with rum (6 oz liquor) and tops the rest off with Coke, repeats this again after that drink is finished (6 oz liquor), then will make himself a bloody Sadie in similar fashion with vodka filling a solo cup custodial (6oz liquor), finishing the top with tomato juice. Then he may or may not have a glass of wine (6oz) within the same day. She states that his has been ongoing for many years since they have been together. She reports that the patient will tell providers that he only drinks 2-3 drinks of alcohol per day. Family with strong history of alcoholism. Allergies Allergy/AdvReac Type Severity Reaction Status Date / Time pollen extracts Allergy Mild Sneezing Verified 08/23/22 10:24 Home Medications Medication Instructions Recorded Confirmed Type apixaban 5 mg tablet (Eliquis) 5 mg PO BID 05/11/19 06/08/25 History mecobalamin (vitamin B12) 1,000 1,000 mcg PO DAILY 01/16/21 06/08/25 History mcg chewable tablet (B12 Active) omeprazole 20 mg capsule,delayed 0 mg PO QAM 01/16/21 06/08/25 History release trazodone 50 mg tablet 100 mg PO HS 01/16/21 06/08/25 History aspirin 81 mg capsule 81 mg PO QAM 03/15/22 06/08/25 History folic acid 1 mg tablet 0 mg PO QAM 03/15/22 06/08/25 History rosuvastatin 5 mg tablet 5 mg PO QAM 03/15/22 06/08/25 History amlodipine 2.5 mg tablet 2.5 mg PO DAILY 06/08/25 06/08/25 History dutasteride 0.5 mg capsule 0.5 mg PO DAILY 06/08/25 06/08/25 History oxycodone 5 mg tablet 5 mg PO Q4H PRN Pain 06/08/25 06/08/25 History sotalol 80 mg tablet 80 mg PO BID 06/08/25 06/08/25 History Past Med/Surg History Problem List (Updated 06/08/25 @ 14:42 by Anitha Toledo DO) Bilateral edema of lower extremity (Acute) Orthopnea (Acute) CHF (congestive heart failure) (Acute) STARKS (dyspnea on exertion) (Acute) Abnormal gallbladder ultrasound Peripheral neuropathy Sensory ataxia Encounter for pre-operative examination Atrial fibrillation Pt admitted with persistent AF-symptomatic. He was started on sotalol. Cardioverted to SR. Continued to be monitored for sotalol load. His rhythm remained SB in 50s but not symptomatic. He continued on eliquis. He was discharged home after 7th dose since the 6th was late in the evening. Encounter for pre-operative examination Encounter for monitoring anti-arrhythmic therapy Lumbar radiculopathy HTN (hypertension) taken off meds due to low blood pressure SSS (sick sinus syndrome) Medical History Atrial fibrillation Basal cell carcinoma Chronic shortness of breath GERD (gastroesophageal reflux disease) Hepatitis A HTN (hypertension) Hx of aneurysm Hx of cardiac pacemaker Hypotension Sleep apnea SSS (sick sinus syndrome) Surgical History History of esophagogastroduodenoscopy (EGD) History of right cataract extraction Hx of angioplasty Hx of cardiac catheterization Hx of colonoscopy Hx of tonsillectomy Family History Father Leukemia Heart disease Son Colorectal cancer Uncle Diabetes Grandmother (Paternal) Stroke Social History Smoking Status: Never smoker Second Hand Exposure: No; Do You Dip or Chew Tobacco: No; Hx Alcohol Use: No Hx Substance Use: No Preferred Language: Tajik Communication Ability: Effective Commissary Worker Required: No Beliefs That Will Affect Care: None marital status: Current Living Situation: Spouse and Family How many Children do You have: 3 Feels Safe at Home: Yes Diet: regular during the past year weight has: remained stable Assistive Devices: Glasses and Hearing Aid - Bilateral Review of Systems Review of Systems: Constitutional: No fever, sweats or chills Eyes: No diplopia, no worsening or blurred vision ENT: normal hearing, no trouble swallowing Respiratory: No cough, sputum, dyspnea at rest or on exertion, + orthopnea Cardiovascular: No chest pain, tightness or palpitations Abdomen: +large abdomen, No pain, nausea, vomiting, diarrhea or constipation Musculoskeletal: No joint pain, calf pain, + bilateral leg swelling Neurologic: No weakness, + neuropathy, +numbness/tingling, + balance problems Psychiatric: No anxiety or depression Skin: No rash or itch Physical Exam Physical Exam: General: awake, alert, no apparent distress, white male Head: Normocephalic, atraumatic ENT: PERRL, EOMI, no pharyngeal exudate, mucous membranes moist Chest: Clear to auscultation, on room air, no adventitious breath sounds Cardiac: Regular rate and rhythm, no murmur, no JVD, normal peripheral pulses, good capillary refill Abdominal: NABS x 4 quadrants, soft, nondistended, nontender to palpation, no rebound or guarding Extremities: Normal inspection, no peripheral edema or erythema, calfs nontender to palpation Psych: Normal mood and affect Neuro: AAO x 3, strength intact bilaterally and rated 5/5, no motor deficits, speech is clear, no peripheral sensory deficits Results & Data Results & Data Vital Signs (Past 12 Hours) Vital Signs Temp Pulse Pulse Resp BP BP Pulse Ox 06/08/25 14:20 154/101 H 06/08/25 14:00 69 06/08/25 13:46 81 18 153/91 H 99 06/08/25 11:49 36.5 C 106 H 18 141/90 H 96 O2 Del Method 06/08/25 14:20 06/08/25 14:00 06/08/25 13:46 Room Air 06/08/25 11:49 Room Air Laboratory Results 06/08/25 12:13 WBC 10.60 RBC 3.92 L Hgb 13.7 L Hct 39.5 L MCV 100.8 H MCH 34.9 H MCHC 34.7 RDW Std Deviation 45.9 RDW Coeff of Viv 12.5 Plt Count 168 MPV 9.7 Immature Gran % (Auto) 0.6 Neut % (Auto) 74.0 Lymph % (Auto) 14.3 Hunt % (Auto) 9.7 Eos % (Auto) 0.9 Baso % (Auto) 0.5 Neut # (Auto) 7.84 H Lymph # (Auto) 1.52 Hunt # (Auto) 1.03 H Eos # (Auto) 0.10 Baso # (Auto) 0.05 Immature Gran # (Auto) 0.06 PT 11.0 INR 1.0 APTT 34 H PTT Ratio 1.3 Sodium 133 L Potassium 3.9 Chloride 99 Carbon Dioxide 25 Anion Gap 9 BUN 8 Creatinine 0.91 Est Cr Clr Drug Dosing 76.8 eGFR 86.81 BUN/Creatinine Ratio 8.8 L Glucose 103 H Calcium 9.2 Total Bilirubin 1.4 H AST 16 ALT 9 Alkaline Phosphatase 74 Troponin I High Sens 4.2 B-Natriuretic Peptide 693 H Total Protein 7.1 Albumin 4.0 Globulin 3.1 Albumin/Globulin Ratio 1.3 Diagnostic Findings Chest X-Ray 06/08/25 11:54 XR chest 1V not portable CLINICAL HISTORY: Chest pain, nonspecific COMPARISON STUDY: Chest radiograph October 02, 2022. FINDINGS: Left subclavian pacer is in place. Low lung volumes are noted. There is no pneumothorax. There may be trace bilateral pleural effusions. Left basilar opacities are present. There is pulmonary vascular congestion. IMPRESSION: 1. Cardiomegaly with pulmonary vascular congestion. 2. Possible small bilateral pleural effusions. 3. Left basilar densities which may represent pneumonia or atelectasis. Radiographic follow-up is recommended. ACT 112: Negative or not required by law. Electronically signed by: Abhishek Valdez M.D. 06/08/2025 1:03 PM Code Status & VTE Plan Code Status Full code - discussed with pt at bedside Supervising Physician Co-Signing Physician Notes Patient seen and examined independently. Discussed with above provider. Patient presents to the hospital with shortness of breath, orthopnea and PND. Physical examination, chest x-ray finding consistent with acute on chronic CHF. He started on diuretics with improvement in the symptoms. Will obtain echocardiogram, cardiology consultation, strict BOLIVAR's. I have reviewed the advanced practitioner's documentation, and I agree with, and take responsibility for the plan of care I spent a total of 30 minutes coordinating, documenting, and providing care for this patient excluding time spent in the performance of separately billed services. All of the aforementioned completed while collaborating with the assigned advanced practitioner for a full treatment plan
[2025-06-08] MEDS ORDERED: LORazepam 1 MG TAB PO PRN (15:55)
[2025-06-08] MEDS ORDERED: ACETAMINOPHEN 325 MG TAB PO PRN (19:10)
[2025-06-08] MEDS ORDERED: ONDANSETRON INJ 2 MG/ML 2 ML VIAL IV PRN (19:10)
[2025-06-08 19:39] LABS: Hematocrit (blood only) 38.0 % (42.0-52.0); Hemoglobin 13.5 g/dl (14.0-18.0); Immature Granulocytes # (auto) 0.05 K/uL (0.01-0.20); Immature Granulocytes % (auto) 0.5 %; Mean Corpuscular Hemoglobin 35.5 pg (25.0-34.0); Mean Corpuscular Volume 100.0 fL (80.0-100.0); Platelet Count 175 K/uL (130-400); RDW Standard Deviation 44.9 fL (36.4-46.3); Red Blood Count 3.80 M/uL (4.70-6.10); White Blood Count 10.35 K/ul (4.8-10.8)
[2025-06-08] MEDS: APIXABAN 5 MG TABLET PO SCH (22:09)
[2025-06-08] MEDS: SOTALOL HCL 80 MG TAB PO SCH (22:09)
[2025-06-09] MEDS: FUROSEMIDE 40 MG/4 ML VIAL IV SCH (06:08)
[2025-06-09 06:52] LABS: Hematocrit (blood only) 40.4 % (42.0-52.0); Hemoglobin 13.8 g/dl (14.0-18.0); Mean Corpuscular Hemoglobin 34.6 pg (25.0-34.0); Mean Corpuscular Volume 101.3 fL (80.0-100.0); Platelet Count 171 K/uL (130-400); RDW Standard Deviation 46.3 fL (36.4-46.3); Red Blood Count 3.99 M/uL (4.70-6.10); White Blood Count 9.57 K/ul (4.8-10.8)
[2025-06-09 07:22] LABS: Anion Gap 10.0 (3-11); Blood Urea Nitrogen 9.0 mg/dl (6-23); Calcium 9.2 mg/dl (8.6-10.3); Carbon Dioxide 28.0 mmol/L (21-32); Chloride 97.0 mmol/L (98-107); Creatinine Clr Calc Pharmacy 71.3 ml/min; Glucose 100.0 mg/dl (70-99(Fasting)); Potassium 3.6 mmol/L (3.5-5.1); Sodium 135.0 mmol/L (136-145)
[2025-06-09] MEDS: THIAMINE HCL 100 MG TAB PO SCH (08:16)
[2025-06-09] MEDS: MULTIVITAMIN TAB PO SCH (08:16)
[2025-06-09] MEDS: FOLIC ACID 1 MG TAB PO SCH (08:16)
[2025-06-09] MEDS: ASPIRIN 81 MG ECTAB PO SCH (08:16)
[2025-06-09] MEDS: FINASTERIDE 5 MG TAB PO SCH (08:17)
[2025-06-09] MEDS: CYANOCOBALAMIN (B-12) 500 MCG TABLET PO SCH (08:17)
[2025-06-09] MEDS: ROSUVASTATIN CALCIUM 5 MG TAB PO SCH (08:17)
[2025-06-09] MEDS: POTASSIUM CHLORIDE 10 MEQ TABCR PO ONE ×2 (08:21→15:32)
--- NOTE | 2025-06-09 08:35 | XCELERA ---
[id number]
--- NOTE | 2025-06-09 09:31 | Hospitalist Progress Note ---
Date of Service June 09, 2025 Assessment & Plan (1) CHF (congestive heart failure): (2) STARKS (dyspnea on exertion): (3) Bilateral edema of lower extremity: (4) Orthopnea: (5) Atrial fibrillation: (6) SSS (sick sinus syndrome): (7) HTN (hypertension): (8) Hx of cardiac pacemaker: (9) GERD (gastroesophageal reflux disease): (10) Peripheral neuropathy: Plan 75-year-old male with PMHx of paroxysmal A-fib, sick sinus syndrome, history of pacemaker placement, HTN, HLD, MGUS, neuropathy, GERD, BPH, urinary frequency, who presents to the hospital today with worsening acute shortness of breath, increased edema in his lower extremities, noted to be dyspneic with speaking long sentences Acute diastolic CHF exacerbation Atrial fibrillation Hx of SSS, 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 BNP is 693 Continue IV lasix Monitor electrolytes and replete appropriately Monitor I/O, daily weight Continue Sotolol 80 mg BID Discussed with Akira Jin with Cardiology team. Cardiology is planning cardioversion tomorrow. Will keep NPO PMN for cardioversion Alcohol Dependence / Abuse Per Admitting Provider, he drinks 18 oz of hard liquor daily +/- a glass of wine. Continue AWSS protocol Counseled regarding alcohol use Hx of pancreatic duodenal artery aneurysm s/p rerpair Follows with vascular surgery Peripheral neuropathy Gait instability MGUS Following with neurology as outpatient, Dr. 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 DVT ppx: teds, scds, eliquis BID FEN/GI: HH, fluid restriction 1500mL CODE: Full I spent a total of 50 minutes coordinating, documenting and providing care for this patient excluding time spent in performance of separately billed services Admission and Anticipated Discharge Date Admission Date: June 08, 2025 Subjective Patient seen and examined Presented with worsening SOB, orthopnea and leg swelling Reports improvement in leg swelling Also reported chest tightness He reports that his home sotalol was recently increased to 80mg BID by Dr Bates due to poorly controlled Afib Physical Exam Constitutional: + well hydrated; no acute distress Eyes: PERRL, conjunctivae normal, anicteric sclerae ENMT: external ear and nose normal, oropharynx normal Respiratory: normal respiratory effort, lungs clear to auscultation Cardiovascular: Rate/Rhythm: + irregularly irregular Gastrointestinal (Abdomen): normal bowel sounds, soft, nontender, no hepatosplenomegaly Musculoskeletal: +pedal edema Neurologic: PERRL, EOMI, accommodation nl, no face palsy, no dysarthria Psychiatric: A+Ox3, euthymic affect Results & Data Results & Data Vital Signs (Past 12 Hours) Vital Signs Temp Pulse Pulse Resp BP BP Pulse Ox 06/09/25 07:41 36.4 C L 107 H 20 148/80 H 98 06/09/25 06:07 80 148/85 H 06/09/25 04:05 36.4 C L 78 18 131/70 95 06/08/25 22:05 100 H 06/08/25 22:02 06/08/25 22:02 36.5 C 83 18 172/92 H 97 O2 Del Method 06/09/25 07:41 Room Air 06/09/25 06:07 06/09/25 04:05 Room Air 06/08/25 22:05 06/08/25 22:02 Room Air 06/08/25 22:02 Room Air Laboratory Results Abnormal lab results 06/08/25 06/08/25 06/09/25 Range/Units 12:13 19:21 06:28 RBC 3.92 L 3.80 L 3.99 L (4.70-6.10) M/uL Hgb 13.7 L 13.5 L 13.8 L (14.0-18.0) g/dl Hct 39.5 L 38.0 L 40.4 L (42.0-52.0) % MCV 100.8 H 101.3 H (80.0-100.0) fL MCH 34.9 H 35.5 H 34.6 H (25.0-34.0) pg Neut # (Auto) 7.84 H 6.91 H (1.40-6.50) K/uL [place] # (Auto) 1.03 H 1.19 H (0.11-0.59) K/uL APTT 34 H (21-31) Seconds Sodium 133 L 135 L (136-145) mmol/L Chloride 97 L (98-107) mmol/L BUN/Creatinine Ratio 8.8 L 9.2 L (10-20) Glucose 103 H 100 H (70-99(Fasting)) mg/dl Total Bilirubin 1.4 H (0.2-1.0) mg/dl B-Natriuretic Peptide 693 H (0-100) pg/ml
--- NOTE | 2025-06-09 09:50 | Cardiology Consultation ---
Date of Consultation June 09, 2025 Assessment & Plan (1) Atrial fibrillation: (2) Heart failure, diastolic, with acute decompensation: (3) SSS (sick sinus syndrome): (4) Cardiac pacemaker in situ: (5) HTN (hypertension): (6) Dyslipidemia, goal LDL below 70: Plan 75-year-old male admitted to [facility] on June 08, 2025 with acute decompensated diastolic congestive heart failure after relapsing into recurrent atrial fibrillation on May 10, 2025 at 06:48. Rhythm previously predominately atrial paced, now with a high percentage of ventricular pacing (ventricular pacing 94.1% via 05/13/2025 device interrogation) Sotalol increased from 40 mg BID to 80 mg BID around 05/11/2025 Anticoagulation has been continued without interruption since May 07 or , after being held x 2 days for wisdom teeth extraction on 05/05/2025. Volume status improving following administration of IV furosemide. Recommendations: * Continue IV furosemide * Supplement potassium orally * Daily labs. * NPO after midnight except for medications, plans for direct-current cardioversion with Out Of Town Collection Clerk in AM of June 10, 2025 * Medtronic device interrogation/reprogramming post cardioversion * Continue increased dose of sotalol, 80 mg twice per day * EKG post cardioversion, to assess QTc * Patient will likely need at least a short course of oral diuretics with supplemental potassium post cardioversion, on discharge * Continue aspirin 81 mg/day and rosuvastatin, LDL cholesterol 48 mg/dL on 12/15/2024 Supervising Physician Co-Signing Physician Notes Patient seen and examined. Past medical history, surgical history, social history and family history have been reviewed. The medical record and all the above studies have been reviewed. Case DW CHRISTIANE including management. Acute HFpEF Atrial Fib with RVR SSS S/P PPM HTN - uncontrolled Hyponatremia Alcoholism correct and f/u electrolytes f/u renal function IV diuretics continue anticoagulation for DCCV on 06/10/25 NPO post MN except meds GDMT for HFpEF limited due to renal insufficiency and low BP adjust rate control meds keeping HR between 60 to 100 BPM and systolic BP between 100-140 mmHg adjust anti-HTN meds keeping systolic BP between 100-140 mmHg avoid hypovolemia keep patient euvolemic keep LE elevated when sitting 1.5 L / 24 hr fluid restriction strict I&Os salt restriction alcohol cessation History of Present Illness Reason for Consultation: CHF exacerbation Requesting Physician: [facility] Hospitalist Service, Ana Buchanan Attending Physician: [facility] Hospitalist Service, Dr. Destiny Qiu MD History of Present Illness Jeffrey Mitchell is a very pleasant 75-year-old male who presented to the [facility] ER in the morning of June 08, 2025 with complaints of shortness of breath, orthopnea, and fluid retention. [place] teeth extracted on 05/05/2025, limited oral intake postoperatively. Apixaban (Eliquis) held 1 day prior to procedure and 1 day after due to bleeding. Alerted by [facility] that a [employer] remote pacemaker transmission was received, patient lapsing into atrial fibrillation on 05/10/2025 at 06:48 Rhythm previously predominately atrial paced, now with a high percentage of ventricular pacing (ASSISTANT DEPARTMENT MANAGER 94.1% via 05/13/2025 interrogation) EP recommended to increase Sotalol from 40 mg BID to 80 mg BID on 05/11/2025 Over the past month patient has noted his "belly inflating like a balloon," increased fatigue, increased shortness of breath which has existed for years though had significantly increased over the past 1 to 2 weeks now to the point the patient is unable to ambulate 1 flight of stairs, nonproductive cough, orthopnea with intermittent PND, lower extremity peripheral edema, and weight gain. EKG in the ER was technically limited, revealing a ventricular paced rhythm with probable underlying atrial fibrillation. Chest x-ray: Cardiomegaly with pulmonary vascular congestion, possible small bilateral pleural effusions, left basilar densities Brisk response to 40 mg IV furosemide in ER, with reported 1+ liter fluid output, ongoing following second dose of IV furosemide administered this morning No chest pain. No overt palpitations. No penile/scrotal edema. No dizziness or syncope. No recent colds or illnesses. No fevers or chills. No night sweats. No mysterious lumps or bumps. Bleeding from wisdom teeth extraction ceased approximately 2 days post procedure. No significant epistaxis. No hemoptysis. No melena or hematochezia. Patient denies missed doses of Eliquis anticoagulation since May 07 or . 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 Anti-Mag antibody presumed as false positive per recent [facility] consult. GERD BPH without obstruction/lower urinary tract symptoms Hemorrhoids History of basal cell carcinoma (nose, left forehead) Bilateral sensorineural hearing loss Chronic sinus/allergic rhinitis Tonsillectomy/adenoidectomy as a child Lasik eye surgery Family History: Mother at the age of 43 following a head injury. Father with leukemia. He also had a history of CHF. Maternal uncle with lung cancer. Paternal uncle with a stroke at 69. Son with colorectal cancer. Social History: Nonsmoker. No smokeless tobacco abuse. Alcohol: 3 drinks per day. No illegal drug use. . Three children. 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 Allergies Allergy/AdvReac Type Severity Reaction Status Date / Time pollen extracts Allergy Mild Sneezing Verified 08/23/22 10:24 Home Medications Medication Instructions Recorded Confirmed Type apixaban 5 mg tablet (Eliquis) 5 mg PO BID 05/11/19 06/08/25 History mecobalamin (vitamin B12) 1,000 1,000 mcg PO DAILY 01/16/21 06/08/25 History mcg chewable tablet (B12 Active) trazodone 50 mg tablet 100 mg PO HS 01/16/21 06/08/25 History aspirin 81 mg capsule 81 mg PO QAM 03/15/22 06/08/25 History folic acid 1 mg tablet 1 mg PO HS 03/15/22 06/08/25 History rosuvastatin 5 mg tablet 5 mg PO HS 03/15/22 06/08/25 History amlodipine 2.5 mg tablet 2.5 mg PO DAILY 06/08/25 06/08/25 History sotalol 80 mg tablet 80 mg PO BID 06/08/25 06/08/25 History Patient History Medical History GERD (gastroesophageal reflux disease) Sleep apnea no device as of now Chronic shortness of breath follows w/Dr Bates Hypotension dr st, stated "my blood pressure is still low even without the medication." Hx of aneurysm side vessel that leads to the pancreas, it was calcified, removed and sealed. Hx of cardiac pacemaker 01/16/2021, [place], [employer], Dr. Bates, sick sinus syndrome Basal cell carcinoma forehead and nose Hepatitis A 1961 Atrial fibrillation Surgical History History of right cataract extraction History of esophagogastroduodenoscopy (EGD) Hx of colonoscopy Hx of cardiac catheterization w/Theodora Marcum, x2 times Hx of angioplasty Hx of tonsillectomy 1950 Family History Father Leukemia Heart disease Son Colorectal cancer Uncle Diabetes Grandmother (Paternal) Stroke Social History Smoking Status: Never smoker Second Hand Exposure: No; Do You Dip or Chew Tobacco: No; Hx Alcohol Use: Yes Alcohol type: hard liquor Hx Substance Use: No Preferred Language: Trinidadian Communication Ability: Effective Mailing Jogger Required: No Beliefs That Will Affect Care: None marital status: Current Living Situation: Family How many Children do You have: 3 Other Information That Helps Us Care for You: No Feels Safe at Home: Yes Safety Concerns: Feels Safe At This Time Diet: regular during the past year weight has: remained stable Assistive Devices: Hearing Aid - Bilateral Review of Systems Review of Systems: Complete Review of Systems: Constitutional: No fevers, chills, or night sweats. HEENT: No amaurosis fugax. Pulmonary: ? Mild sleep apnea by remote testing. Cardiac: See above. GI/Abd: No dysphagia. No history of esophageal varices. No kidney problems. No liver problems. Vascular: See above, followed by [facility] Vascular Surgery. Hematologic: No abnormal bleeding. Prescribed chronic Eliquis anticoagulation. Musculoskeletal: Negative. Skin: No rash. Neurologic: No history of TIA/CVA. No history of seizure disorder. Male : BPH. Endocrine: No history of diabetes mellitus. No thyroid trouble. Complete Review of Systems is as stated above, negative, or noncontributory Physical Exam Physical Exam: General: A&Ox3. NAD. HENT: Normocephalic. Atraumatic. Eyes: PER. Conjunctiva pink, sclera clear. Neck: JVD. HJR. No carotid bruits. Heart: Irregularly irregular at 100 bpm. Soft systolic murmur at the lower left sternal border. No rub. PMI is nondisplaced. Lungs: Diminished at the bases. Faint left basilar rales. No wheeze. Abdomen: Somewhat distended. Fairly soft. +BS. Soft. Nontender. No organomegaly. Extremities: 1-2+ pedal edema. No clubbing. No cyanosis Limited neurological examination is without focal deficits. Pulses: radial=2/4, posterior tibial=2/4. Results & Data Vital Signs (Past 12 Hours) Vital Signs Temp Pulse Pulse Resp BP BP Pulse Ox 06/09/25 07:41 36.4 C L 107 H 20 148/80 H 98 06/09/25 06:07 80 148/85 H 06/09/25 04:05 36.4 C L 78 18 131/70 95 06/08/25 22:05 100 H 06/08/25 22:02 06/08/25 22:02 36.5 C 83 18 172/92 H 97 O2 Del Method 06/09/25 07:41 Room Air 06/09/25 06:07 06/09/25 04:05 Room Air 06/08/25 22:05 06/08/25 22:02 Room Air 06/08/25 22:02 Room Air Laboratory Results Cardiac Enzymes 06/08/25 Range/Units 12:13 AST 16 (13-39) U/L Troponin I High Sens 4.2 (0-20) pg/ml B-Natriuretic Peptide 693 H (0-100) pg/ml Coagulation 06/08/25 Range/Units 12:13 PT 11.0 (9.0-12.0) Seconds APTT 34 H (21-31) Seconds B-Natriuretic Peptide 693 H (0-100) pg/ml CBC 06/08/25 06/08/25 06/09/25 Range/Units 12:13 19:21 06:28 WBC 10.60 10.35 9.57 (4.8-10.8) K/ul RBC 3.92 L 3.80 L 3.99 L (4.70-6.10) M/uL Hgb 13.7 L 13.5 L 13.8 L (14.0-18.0) g/dl Hct 39.5 L 38.0 L 40.4 L (42.0-52.0) % Plt Count 168 175 171 (130-400) K/uL Neut # (Auto) 7.84 H 6.91 H (1.40-6.50) K/uL Lymph # (Auto) 1.52 1.99 (1.20-3.40) K/uL Wilcox # (Auto) 1.03 H 1.19 H (0.11-0.59) K/uL Eos # (Auto) 0.10 0.16 (0.00-0.50) K/uL Baso # (Auto) 0.05 0.05 (0.00-0.20) K/uL Comprehensive Metabolic Panel 06/08/25 06/09/25 Range/Units 12:13 06:28 Sodium 133 L 135 L (136-145) mmol/L Potassium 3.9 3.6 (3.5-5.1) mmol/L Chloride 99 97 L (98-107) mmol/L Carbon Dioxide 25 28 (21-32) mmol/L BUN 8 9 (6-23) mg/dl Creatinine 0.91 0.98 (0.6-1.4) mg/dl Glucose 103 H 100 H (70-99(Fasting)) mg/dl Calcium 9.2 9.2 (8.6-10.3) mg/dl AST 16 (13-39) U/L ALT 9 (7-52) U/L Alkaline Phosphatase 74 (34-104) U/L Total Protein 7.1 (6.0-8.3) gm/dl Albumin 4.0 (3.4-5.0) gm/dl Intake and Output 06/08/25 06/09/25 06/09/25 22:59 06:59 14:59 Intake Total 125 / 125 Output Total 1700 / 1700 Balance -1575 / -1575 Intake: Oral 125 / 125 Output: Urine 1700 / 1700 Other: Weight 92.5 kg Weight Measurement Method Standing Scale Diagnostic Findings October 23, 2017 diagnostic cardiac catheterization by Dr. Bob Alexander at [facility] revealed right-dominant coronary anatomy with normal coronary arteries. Left ventricular systolic function was normal, EF greater than 65%. March 12, 2025 TTE Interpretation Summary (as per Dr. Raines): The LV wall thickness is mildly increased (concentric). The left ventricular wall motion is normal. The qualitative LV ejection fraction is 60-64% (normal). The left atrium is normal sized. The left ventricular diastolic function is mildly abnormal (grade I). Mild aortic valve sclerosis is present. Aortic stenosis is absent. December 28, 2024 Dobutamine Stress Echocardiography Interpretation Summary (as per Dr. Alexander): The stress echo is negative for inducible ischemia. There was an appropriate heart rate to the dobutamine/atropine stress protocol Blood pressure response was hypertensive No cardiac symptoms with patient complaining of urinary urgency during the procedure The stress EKG response showed no evidence of ischemia. Ventricular couplets were noted with stress. Complex ventricular ectopy was noted with stress. The left ventricular wall motion with stress is normal. The left ventricular ejection fraction increases normally with stress. The left ventricular systolic function is normal. The LV wall thickness is mildly increased (concentric). The qualitative LV ejection fraction is 55-59% (normal). Moderate aortic valve sclerosis is present. Mild aortic valve regurgitation is present. Mild tricuspid regurgitation is present. There is no evidence of pulmonary hypertension. June 09, 2025 TTE Summary ([facility], Dr. Cherry): Left ventricular systolic function is normal. Left ventricular ejection fraction 55 to 60%. Left ventricular diastolic dysfunction is indeterminate. Mild aortic regurgitation. Mild mitral and tricuspid regurgitation. RVSP elevated at 30 to 40 mmHg. Telemetry: Atrial fibrillation, intermittent ventricular paced rhythm. Occasio nal PVCs. Heart rates variable, 70 to 110 bpm. PG Care Time/CCT Total # of Minutes Spent Total Time Spent with Patient: Total time spent is greater than 50% in coordination of care (as documented) at patient's floor/unit and/or counseling patient. I spent a total of 95 minutes on the date of service in preparation, delivery, and documentation of the care provided to this patient excluding any time spent in the performance of separately billed services. This visit was a split-shared visit with the substantive portion of the medical decision making performed by the supervising urban planner/billing provider. Coding Level of Care Code 84270 IN/OBS CONSULT LVL 5,80M Diagnoses Atrial fibrillation I48.91 Heart failure, diastolic, with acute decompensation I50.33 SSS (sick sinus syndrome) I49.5 Cardiac pacemaker in situ Z95.0 HTN (hypertension) I10 Dyslipidemia, goal LDL below 70 E78.5
[2025-06-09 10:45] LABS: Magnesium 1.9 mg/dl (1.7-2.4)
[2025-06-09 11:00] LABS: Thyroid Stimulating Hormone 3.243 uIu/ml (0.300-4.500)
--- NOTE | 2025-06-09 16:09 | Electrocardiogram Report ---
Test Reason : Blood Pressure : */* mmHG Vent. Rate : 95 BPM Atrial Rate : 67 BPM P-R Int : * ms QRS Dur : 116 ms QT Int : 386 ms P-R-T Axes : * -38 90 degrees QTcB Int : 485 ms Ventricular-paced rhythm Abnormal ECG When compared with ECG of 02-Oct-2022 07:43, Ventricular pacing has replaced atrial pacing Confirmed by José Miguel Blake ([id number]) on 06/09/2025 4:08:36 PM Referred By: Confirmed By: José Miguel Blake
--- NOTE | 2025-06-10 07:44 | History & Physical Bridge Note ---
Date of Service June 10, 2025 History & Physical Bridge Note I have examined the patient, reviewed the History & Physical and in the interval since the performance of the History & Physical I have noted the following changes of clinical significance: pt with persistent AF symptomatic has not missed any eliquis in the past month; discussed risks including heart attach, stroke, and arrhythmias-he expressed an understanding and consents signed.
--- NOTE | 2025-06-10 07:52 | Anesthesiology Consultation ---
Date of Service June 10, 2025 Assessment & Plan Chart Review Chart Review: Acceptable Risk for Surgery and Patient NOT seen in Pre Admission Testing Consults Requested none ASA ASA3 Proposed Anesthesia Anesthesia Type: MAC Risk / Benefits Reviewed With: PT / POA / Parent / Guardian, Accepts Plan and Informed Consent Obtained History Surgery Operation Date: 06/09/25 07:45 Proposed Procedures p Cardioversion w/Anesthesia Sedation - Veronica Bates, Height/Weight Height: 6 ft 1 in Weight: 90.3 kg Allergies Allergy/AdvReac Type Severity Reaction Status Date / Time pollen extracts Allergy Mild Sneezing Verified 08/23/22 10:24 Medications Home Medications Medication Instructions Recorded Confirmed Last Taken apixaban 5 mg tablet (Eliquis) 5 mg PO BID 05/11/19 06/08/25 06/08/25 09:00 mecobalamin (vitamin B12) 1,000 1,000 mcg PO DAILY 01/16/21 06/08/25 06/08/25 09:00 mcg chewable tablet (B12 Active) trazodone 50 mg tablet 100 mg PO HS 01/16/21 06/08/25 06/07/25 21:00 aspirin 81 mg capsule 81 mg PO QAM 03/15/22 06/08/25 06/08/25 09:00 folic acid 1 mg tablet 1 mg PO HS 03/15/22 06/08/25 06/07/25 21:00 rosuvastatin 5 mg tablet 5 mg PO HS 03/15/22 06/08/25 06/07/25 21:00 amlodipine 2.5 mg tablet 2.5 mg PO DAILY 06/08/25 06/08/25 06/08/25 09:00 sotalol 80 mg tablet 80 mg PO BID 06/08/25 06/08/25 06/08/25 09:00 Active Medications Generic Name Dose Route Start Last Admin Trade Name Freq PRN Reason Stop Dose Admin Amlodipine Besylate 2.5 mg 06/09/25 09:00 06/10/25 06:22 Amlodipine Besylate 5 Mg Tab PO 07/09/25 08:59 2.5 mg DAILY NOE Administration Apixaban 5 mg 06/08/25 21:00 06/10/25 06:23 Apixaban 5 Mg Tablet PO 07/08/25 20:59 5 mg BID NOE Administration Aspirin 81 mg 06/09/25 09:00 06/10/25 06:22 Aspirin 81 Mg Ectab PO 07/09/25 08:59 81 mg QAM NOE Administration Cyanocobalamin 1,000 mcg 06/09/25 09:00 06/10/25 06:23 Cyanocobalamin (B-12) 500 Mcg Tablet PO 07/09/25 08:59 1,000 mcg DAILY NOE Administration Finasteride 5 mg 06/09/25 09:00 06/10/25 06:21 Finasteride 5 Mg Tab PO 07/09/25 08:59 5 mg DAILY NOE Administration Folic Acid 1 mg 06/09/25 09:00 06/10/25 06:24 Folic Acid 1 Mg Tab PO 07/09/25 08:59 1 mg QAM NOE Administration Furosemide 40 mg 06/09/25 07:00 06/10/25 06:20 Furosemide 40 Mg/4 Ml Vial IV 07/09/25 06:59 40 mg [id number] NOE Administration Multivitamins 1 tab 06/09/25 09:00 06/10/25 06:24 Multivitamin Tab PO 07/09/25 08:59 1 tab QAM NOE Administration Pantoprazole Sodium 40 mg 06/09/25 09:00 06/10/25 06:24 Pantoprazole 40 Mg Tab PO 07/09/25 08:59 40 mg QAM NOE Administration Rosuvastatin Calcium 5 mg 06/09/25 09:00 06/10/25 06:22 Rosuvastatin Calcium 5 Mg Tab PO 07/09/25 08:59 5 mg QAM NOE Administration Sotalol HCl 80 mg 06/08/25 21:00 06/10/25 06:24 Sotalol Hcl 80 Mg Tab PO 07/08/25 20:59 80 mg BID NOE Administration Thiamine HCl 100 mg 06/09/25 09:00 06/10/25 06:25 Thiamine Hcl 100 Mg Tab PO 07/09/25 08:59 100 mg QAM NOE Administration Trazodone HCl 100 mg 06/08/25 21:00 06/09/25 20:27 Trazodone Hcl 100 Mg Tab PO 07/08/25 20:59 100 mg HS NOE Administration NPO Date Last Intake of Fluids: 06/09/25 Time Last Intake of Fluids: 18:00 Date Last Intake of Solids: 06/09/25 Time Last Intake of Solids: 18:00 Past Medical History Medical History GERD (gastroesophageal reflux disease) Sleep apnea no device as of now Chronic shortness of breath follows w/Dr Bates Hypotension dr st, stated "my blood pressure is still low even without the medication." Hx of aneurysm side vessel that leads to the pancreas, it was calcified, removed and sealed. Hx of cardiac pacemaker 01/16/2021, [place], [employer], Dr. Bates, sick sinus syndrome Basal cell carcinoma forehead and nose Hepatitis A 1961 Atrial fibrillation Exercise / Class Metabolic Activity III < 4 Walking/Shop/Light housework Past Family History Family History Father Leukemia Heart disease Son Colorectal cancer Uncle Diabetes Grandmother (Paternal) Stroke Past Surgical History Surgical History History of right cataract extraction History of esophagogastroduodenoscopy (EGD) Hx of colonoscopy Hx of cardiac catheterization w/Dr. Bates, [facility], x2 times Hx of angioplasty Hx of tonsillectomy 1950 Past Anesthesia History No Hx of Anesthesia Complications and No Family Hx of Anesthesia Complications History of PONV No Hx of PONV and No Hx of Motion Sickness Social History Smoking Status: Never smoker Do You Dip or Chew Tobacco: No Hx Alcohol Use: Yes Alcohol type: hard liquor alcohol intake frequency: 3 or more drinks per day Hx Substance Use: No substance use type: does not use Review of Systems ROS Unobtainable: All systems reviewed & are unremarkable except as noted in HPI & below Physical Exam Vital Signs Last Vital Signs Temp 36.4 C L 06/10/25 02:39 Pulse 74 06/10/25 07:34 Resp 18 06/10/25 07:32 BP 146/88 H 06/10/25 07:32 Pulse Ox 99 06/10/25 07:32 O2 Del Method Room Air 06/10/25 07:32 ENMT Mouth: no TMJ abnormality Thyromental Distance: > or= 3.5 Finger Breadths Mallampati Class: II Neck normal visual inspection and trachea midline; neck extension not limited Respiratory normal respiratory effort Auscultation: lungs clear to auscultation bilaterally Cardiovascular Rate/Rhythm: regular rate and regular rhythm Heart Sounds: no murmur Musculoskeletal Spine: normal cervical ROM Extremities: full ROM of extremities Neurologic moves all extremities Psychiatric Orientation: alert and oriented x 3 Testing Laboratory Results 06/09/25 06:28 06/09/25 06:28 PT 11.0 Seconds (9.0-12.0) 06/08/25 12:13 INR 1.0 (0.9-1.1) 06/08/25 12:13 APTT 34 Seconds (21-31) H 06/08/25 12:13 Electrocardiogram Date: 06/08/25 Ventricular-paced rhythm Abnormal ECG When compared with ECG of 02-Oct-2022 07:43, Ventricular pacing has replaced atrial pacing Confirmed by José Miguel Blake ([id number]) on 06/09/2025 4:08:36 PM Echocardiogram Date: 06/09/25 EF: 55-60 LV Function: normal Valvular Disease: + no significant valvular disease
[2025-06-10 07:59] LABS: Hematocrit (blood only) 38.8 % (42.0-52.0); Hemoglobin 13.6 g/dl (14.0-18.0); Mean Corpuscular Hemoglobin 35.4 pg (25.0-34.0); Mean Corpuscular Volume 101.0 fL (80.0-100.0); Platelet Count 195 K/uL (130-400); RDW Standard Deviation 46.2 fL (36.4-46.3); Red Blood Count 3.84 M/uL (4.70-6.10); White Blood Count 11.21 K/ul (4.8-10.8)
[2025-06-10] MEDS ORDERED: PROPOFOL IV EMULSION 10 MG/ML 20 ML VIAL IV ONE (08:01)
[2025-06-10] MEDS ORDERED: LIDOCAINE 2% 2 ML VIAL/AMP(20MG/ML) INFIL ONE (08:01)
--- NOTE | 2025-06-10 08:07 | Operative Report ---
Post Operative Report PROCEDURE NOTE: Pre Op Diagnosis: persistent AF Post OP diagnosis: AP-CALL CENTER REPRESENTATIVE DOS: 06/10/2025 Surgeon: Dr. Bates Procedure: external synchronized cardioversion and dual chamber pacemaker interrogation and reprogramming Anesthesia: MAC administered by anesthesiology-please defer to their notes for details; propofol 50mg and 40mg lidocaine Complication: None Condition: stable Indications: This is a 75 y/o M with PMH pAF on sotalol and eliquis, TBS s/p ppm. He was admitted with worsening acute CHF due to the AF; diuresed and recommended a cardioversion to restore SR due to his symptoms of SOB, acute CHF. Consent: The patient was explained the risks, benefits and alternatives to the procedure. Risks include but not limited to heart attack, stroke, arrhythmia, , redness on the skin. He expressed an understanding and consents signed. No GALILEO necessary give he has not missed any eliquis in the past month. Description of the Procedure: Pt was brought into the procedure room in a fasting state. He was connected to continuous schedule manager. A time out was performed to identify procedure and patient correctly. The pt confirmed he had not missed any dose of eliquis in the past month. The patient received MAC administered by anesthesiology. Then a synchronized external cardioversion was performed at 360J which successfully converted the patient to sinus rhythm. Patient tolerated the procedure without any problems. Device Interrogation: Post DCCV: RA: 1.4mV; 475 ohms; 1V @ 0.4ms left bundle 7.5mV; 494 ohms; 0.25V @ 0.4ms Reprogrammed: turned atrial therapies back on Impression: Successful synchronized external cardioversion due to symptomatic pAF. Plan: Monitor pt post procedure 12 lead ECG now No change in cardiac medications Pt not to miss any eliquis for the next month transfer back to telemetry EP f/u as scheduled next week
[2025-06-10 08:22] LABS: Anion Gap 9.0 (3-11); Blood Urea Nitrogen 21.0 mg/dl (6-23); Calcium 9.2 mg/dl (8.6-10.3); Carbon Dioxide 30.0 mmol/L (21-32); Chloride 96.0 mmol/L (98-107); Creatinine Clr Calc Pharmacy 57.3 ml/min; Glucose 98.0 mg/dl (70-99(Fasting)); Magnesium 1.8 mg/dl (1.7-2.4); Potassium 3.9 mmol/L (3.5-5.1); Sodium 135.0 mmol/L (136-145)
--- NOTE | 2025-06-10 08:35 | Anesthesiology Progress Note ---
Date of Service June 10, 2025 Anesthesia Post Procedure Vital Signs Vital Signs: Temp Pulse Pulse Resp BP BP Pulse Ox 06/10/25 08:30 79 18 104/68 94 06/10/25 08:15 70 18 104/67 96 06/10/25 08:00 75 18 102/64 100 06/10/25 07:34 74 06/10/25 07:32 85 18 146/88 H 99 06/10/25 02:39 36.4 C L 79 16 136/76 94 06/10/25 00:16 81 06/09/25 22:37 36.5 C 90 18 168/89 H 97 06/09/25 21:46 06/09/25 19:11 36.4 C L 86 18 123/80 96 06/09/25 16:05 06/09/25 15:26 36.3 C L 83 18 118/76 98 06/09/25 11:03 36.7 C 87 18 131/77 96 O2 Del Method 06/10/25 08:30 Room Air 06/10/25 08:15 Room Air 06/10/25 08:00 Room Air 06/10/25 07:34 06/10/25 07:32 Room Air 06/10/25 02:39 Room Air 06/10/25 00:16 06/09/25 22:37 Room Air 06/09/25 21:46 Room Air 06/09/25 19:11 Room Air 06/09/25 16:05 Room Air 06/09/25 15:26 Room Air 06/09/25 11:03 Room Air Transfer of Care Handoff Completed per policy Notes Mental Status: alert / awake / arousable Patient Amnestic to Procedure: Yes Nausea / Vomiting: adequately controlled Pain: adequately controlled Airway Patency, RR, SpO2: stable & adequate BP & HR: stable & adequate Hydration State: stable & adequate Anesthetic Complications: no major complications apparent and Pt Satisfied with anesthetic care
--- NOTE | 2025-06-10 10:57 | Cardiology Progress Note ---
Date of Service June 10, 2025 Assessment & Plan (1) Atrial fibrillation: (2) Heart failure, diastolic, with acute decompensation: (3) SSS (sick sinus syndrome): (4) Cardiac pacemaker in situ: (5) HTN (hypertension): (6) Dyslipidemia, goal LDL below 70: Plan 75-year-old male admitted to [facility] on June 08, 2025 with acute decompensated diastolic congestive heart failure after relapsing into recurrent atrial fibrillation on May 10, 2025 at 06:48. Rhythm previously predominately atrial paced, with a high percentage of ventricular pacing (ventricular pacing 94.1% via 05/13/2025 device interrogation) after lapsing into atrial fibrillation. Sotalol increased from 40 mg BID to 80 mg BID around 05/11/2025. Anticoagulation interrupted x two days for wisdom teeth extraction on 05/05/2025, resumed and continued without interruption since May 08. Status post successful direct-current cardioversion by Dr. Bates on 06/10/2025. EKG post cardioversion revealed an atrial paced rhythm with prolonged AV conduction, low voltage QRS, QTc 475 ms. Device ([employer]) reprogrammed post cardioversion (atrial therapies turned on) Volume status considerably improved. Recommendations: * OK for discharge from a cardiac standpoint. * Continue anticoagulation with apixaban (Eliquis) at 5 mg twice a day, without interruption for at least the next month * Continue the increased dose of sotalol, 80 mg twice a day * Recommend furosemide 20 mg/day along with potassium chloride 10 mEq/day on discharge, at least until cardiology follow-up * Outpatient cardiology follow-up with Dr. Bates on 06/17/2025, or as needed. * Please contact with any questions or concerns. Admission and Anticipated Discharge Date Admission Date: June 08, 2025 Supervising Physician Co-Signing Physician Notes Patient seen and examined. Past medical history, surgical history, social history and family history have been reviewed. The medical record and all the above studies have been reviewed. Case DW CHRISTIANE including management. Acute HFpEF Atrial Fib with RVR - S/P DCCV SSS S/P PPM HTN - stable Hyponatremia Alcoholism sotalol 80mg po BID as per EP continue anticoagulation Lasix 20mg po daily + KCL 10 meq po daily salt restriction alcohol cessation Stable from cardiac standpoint for discharge f/u with EP as scheduled Subjective Patient seen and examined. Chart, medication, telemetry reviewed. Status post direct-current cardioversion by Dr. Valenzuela, successful conversion to sinus (atrial paced) rhythm following 360 J shock. EKG post cardioversion revealed an atrial paced rhythm with prolonged AV conduction, low voltage QRS, QTc 475 ms. Device ([employer]) reprogrammed post cardioversion, turning atrial therapies back on Patient feels improved overall, with improvement in dyspnea, orthopnea, abdominal bloating, lower extremity peripheral edema. Ongoing mild fluid retention noted. No reported chest pain, PND, dizziness, fevers, chills, melena, hematochezia, or hematuria. Review of Systems Review of Systems: See above. Physical Exam Physical Exam: General: A&Ox3. NAD. HENT: Normocephalic. Atraumatic. Eyes: PER. Conjunctiva pink, sclera clear. Neck: JVD. HJR. No carotid bruits. Heart: Regular at 70 bpm. Soft systolic murmur at the lower left sternal border. No rub. PMI is nondisplaced. Lungs: Clear. No rales. No wheeze. Abdomen: +BS. Soft. Nontender. No organomegaly. Extremities: Mild distal (pedal) right greater than left lower extremity edema. No clubbing. No cyanosis Limited neurological examination is without focal deficits. Pulses: radial=2/4, posterior tibial=2/4. Results & Data Vital Signs (Past 12 Hours) Vital Signs Temp Pulse Pulse Resp BP BP Pulse Ox 06/10/25 09:19 37.2 C 76 20 123/71 99 06/10/25 09:04 36.5 C 74 20 125/71 98 06/10/25 08:30 79 18 104/68 94 06/10/25 08:15 70 18 104/67 96 06/10/25 08:00 75 18 102/64 100 06/10/25 07:34 74 06/10/25 07:32 85 18 146/88 H 99 06/10/25 02:39 36.4 C L 79 16 136/76 94 06/10/25 00:16 81 O2 Del Method 06/10/25 09:19 Room Air 06/10/25 09:04 Room Air 06/10/25 08:30 Room Air 06/10/25 08:15 Room Air 06/10/25 08:00 Room Air 06/10/25 07:34 06/10/25 07:32 Room Air 06/10/25 02:39 Room Air 06/10/25 00:16 Laboratory Results CBC 06/10/25 Range/Units 07:10 WBC 11.21 H (4.8-10.8) K/ul RBC 3.84 L (4.70-6.10) M/uL Hgb 13.6 L (14.0-18.0) g/dl Hct 38.8 L (42.0-52.0) % Plt Count 195 (130-400) K/uL Comprehensive Metabolic Panel 06/10/25 Range/Units 07:10 Sodium 135 L (136-145) mmol/L Potassium 3.9 (3.5-5.1) mmol/L Chloride 96 L (98-107) mmol/L Carbon Dioxide 30 (21-32) mmol/L BUN 21 (6-23) mg/dl Creatinine 1.22 (0.6-1.4) mg/dl Glucose 98 (70-99(Fasting)) mg/dl Calcium 9.2 (8.6-10.3) mg/dl Intake and Output 06/09/25 06/10/25 06/10/25 22:59 06:59 14:59 Intake Total 540 / 1030 Output Total 775 / 2550 125 / 2550 Balance -235 / -1520 -125 / -1520 Intake: Oral 540 / 1030 Output: Urine 775 / 2550 125 / 2550 Other: Other Intake Source NPO Weight 90.3 kg 90.3 kg Weight Measurement Method Standing Scale Patient Weight 06/11/25 06:59 Weight 90.3 kg Diagnostic Findings Telemetry: Atrial paced, prolonged AV conduction, ventricular sensed rhythm with occasional PVC's post cardioversion. Medications Administered Home Medications Medication Instructions Recorded Confirmed Last Taken apixaban 5 mg tablet (Eliquis) 5 mg PO BID 05/11/19 06/08/25 06/08/25 09:00 mecobalamin (vitamin B12) 1,000 1,000 mcg PO DAILY 01/16/21 06/08/25 06/08/25 09:00 mcg chewable tablet (B12 Active) trazodone 50 mg tablet 100 mg PO HS 01/16/21 06/08/25 06/07/25 21:00 aspirin 81 mg capsule 81 mg PO QAM 03/15/22 06/08/25 06/08/25 09:00 folic acid 1 mg tablet 1 mg PO HS 03/15/22 06/08/25 06/07/25 21:00 rosuvastatin 5 mg tablet 5 mg PO HS 03/15/22 06/08/25 06/07/25 21:00 amlodipine 2.5 mg tablet 2.5 mg PO DAILY 06/08/25 06/08/25 06/08/25 09:00 sotalol 80 mg tablet 80 mg PO BID 06/08/25 06/08/25 06/08/25 09:00 furosemide 20 mg tablet 20 mg PO DAILY #30 tabs 06/10/25 Unknown potassium chloride 10 mEq 10 meq PO DAILY #30 caps 06/10/25 Unknown capsule,extended release PG Care Time/CCT Total # of Minutes Spent Total Time Spent with Patient: Total time spent is greater than 50% in coordination of care (as documented) at patient's floor/unit and/or counseling patient. I spent a total of 50 minutes on the date of service in preparation, delivery, and documentation of the care provided to this patient excluding any time spent in the performance of separately billed services. This visit was a split-shared visit with the substantive portion of the medical decision making performed by the supervising cisco network engineer/billing provider. Coding Level of Care Code 51689 SUB INP/OBS CARE 3/50MIN Diagnoses Atrial fibrillation I48.91 Heart failure, diastolic, with acute decompensation I50.33 SSS (sick sinus syndrome) I49.5 Cardiac pacemaker in situ Z95.0 HTN (hypertension) I10 Dyslipidemia, goal LDL below 70 E78.5
[2025-06-10 11:32] VITALS: PULSE 72; RESP 16; TEMP 98.2; O2SAT 97
--- NOTE | 2025-06-10 11:33 | Discharge Summary ---
Date of Service June 10, 2025 Admission HPI Per Admitting Provider This is a 75-year-old male with PMHx of paroxysmal A-fib, sick sinus syndrome, history of pacemaker placement, HTN, HLD, MGUS, neuropathy, GERD, BPH, urinary frequency, who presents to the hospital with worsening acute shortness of breath, increased edema in his lower extremities, noted to be dyspneic with speaking long sentences. His , Sadie is present at bedside and supports the history. Patient reports that he has been taking increased dose of sotalol 80 mg twice daily since about May 22,. This was increased secondary to his possible worsening paroxysmal A-fib with flutter/palpitations. In the past 1 week he has noticed worsening edema in bilateral lower extremities, with dyspnea with minimal ADLs, and admits to orthopnea x 2 nights. He typically sleeps with 1 pillow, last evening attempted to use up to 3 pillows and then ended up sitting up in a chair as he felt that he could not breathe at all. He does not wear any supplemental O2 at baseline. Patient does not take any diuretic at baseline. He is compliant with his other medications, although he had been trialed per report on diuretics in the past he has not liked using them due to the amount of urination that occurs secondary to taking them. notes recent worsening dizziness, gait issues when going from a sitting to standing position, no falls. He does not use any device for ambulation assistance. CXR today shows cardiomegaly with pulmonary vascular congestion, possible left bibasilar density, possible small bilateral pleural effusion. BNP is 693. patient underwent stress dobutamine testing in December 2024 which showed an EF of 55 to 59%, moderate aortic valve sclerosis, mild aortic valve regurg, mild tricuspid regurg, no pulmonary hypertension. In the ER the patient was given Lasix 40 mg IV, at 2:20 PM, in the past 1.5 hours the patient is out at least 1 L of urine. Education was provided at bedside to patient and his to not dump urine without having nursing aware to be able to chart accurate ins and outs. 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 Lives at home with . No tobacco use, no illicit drug use. states that he drinks significant amount of hard liquor on a daily basis. Patient will fill a solo cup at least intermediate with rum (6 oz liquor) and tops the rest off with Coke, repeats this again after that drink is finished (6 oz liquor), then will make himself a bloody Sadie in similar fashion with vodka filling a solo cup intermediate (6oz liquor), finishing the top with tomato juice. Then he may or may not have a glass of wine (6oz) within the same day. She states that his has been ongoing for many years since they have been together. She reports that the patient will tell providers that he only drinks 2-3 drinks of alcohol per day. Family with strong history of alcoholism. Admission Exam Per Admitting Provider General: awake, alert, no apparent distress, white male Head: Normocephalic, atraumatic ENT: PERRL, EOMI, no pharyngeal exudate, mucous membranes moist Chest: Clear to auscultation, on room air, no adventitious breath sounds Cardiac: Regular rate and rhythm, no murmur, no JVD, normal peripheral pulses, good capillary refill Abdominal: NABS x 4 quadrants, soft, nondistended, nontender to palpation, no rebound or guarding Extremities: +pedal edema Psych: Normal mood and affect Neuro: AAO x 3, strength intact bilaterally and rated 5/5, no motor deficits, speech is clear, no peripheral sensory deficits Principal Diagnosis Acute diastolic heart failure Atrial fibrillation status post successful cardioversion Discharge Exam Constitutional + well hydrated; no acute distress Eyes PERRL, conjunctivae normal, anicteric sclerae ENMT external ear and nose normal, oropharynx normal Respiratory normal respiratory effort, lungs clear to auscultation Cardiovascular Rate/Rhythm: regular rate and regular rhythm Gastrointestinal (Abdomen) normal bowel sounds, soft, nontender, no hepatosplenomegaly Musculoskeletal Pedal edema much improved (trace) Neurologic PERRL, EOMI, accommodation nl, no face palsy, no dysarthria Psychiatric A+Ox3, euthymic affect Discharge Data Allergies Allergy/AdvReac Type Severity Reaction Status Date / Time pollen extracts Allergy Mild Sneezing Verified 08/23/22 10:24 Consultations 06/08/25 15:07 ED Decision to Admit Stat 06/08/25 19:10 Consult Cardiology Routine Procedures Performed Operation Date: 06/10/25 07:45 Actual Procedures p Cardioversion - Veronica Bates DO Hospital Course (1) CHF (congestive heart failure): (2) STARKS (dyspnea on exertion): (3) Bilateral edema of lower extremity: (4) Orthopnea: (5) Atrial fibrillation: (6) SSS (sick sinus syndrome): (7) HTN (hypertension): (8) Hx of cardiac pacemaker: (9) GERD (gastroesophageal reflux disease): (10) Peripheral neuropathy: Plan 75-year-old male with PMHx of paroxysmal A-fib, sick sinus syndrome, history of pacemaker placement, HTN, HLD, MGUS, neuropathy, GERD, BPH, urinary frequency, who presents to the hospital today with worsening acute shortness of breath, increased edema in his lower extremities, noted to be dyspneic with speaking long sentences Acute diastolic CHF exacerbation Atrial fibrillation Last echo stress test 12/28/24 showed an EF of 55 to 59%, moderate aortic valve sclerosis, mild aortic valve regurg, mild tricuspid regurg, no pulmonary hypertension CXR on admission shows cardiomegaly with pulmonary vascular congestion, possible left bibasilar density, possible small bilateral pleural effusion. BNP is 693 Was managed with IV lasix Pedal edema improved TTE from 06/09/25 showed EF 55-60%, mild AR, mild MR, mild TR, RVSP 30-40mmHg S/p successful cardioversion today Discussed with Cardiology team who recommends discharge on po lasix 20mg daily and potassium 10mEQ daily until Cardiology follow up Patient to continue his [employer]IST sotalol 80mg BID Alcohol Dependence / Abuse Patient counseled extensively regarding his alcohol use Updated at bedside Total Time Total Time Spent Total Time Spent (In Minutes): 45 Total Time Includes: Examination of the Patient, Discharge Planning, Medication Reconciliation, Communication With Other Providers and Other Discharge Plan Discharge Items Patient Disposition: Home - Self-Care Reason For Visit: CHF EXACERBATION Discharge Diagnosis: Acute diastolic heart failure Atrial fibrillation status post successful cardioversion Condition on Discharge: Fair Activity: Resume your previous activity Non-emergency contact: Primary Care Provider and [employer] Post Craftsman Call non-emergency contact if: you have any medication questions Follow-up/Referrals: Todd Parikh DO [Primary Care Provider] - (Date & Time 06/15/2025 1:40 PM Provider: Todd Parikh DO [facility] ) Diet: Heart Healthy Addtl Attending Provider Instructions: Mr Mitchell You were hospitalized and managed for the above listed diagnoses. Your heart rhythm was successfully cardioverted to normal rhythm. You are being discharged on tablet furosemide 20mg daily and potassium 10mEQ daily. Please continue to take your sotalol 80mg twice and day and ensure follow up with your Command Post Craftsman and Primary Doctor. It was a pleasure taking care of you. Pending Studies at Discharge: No Stand-Alone Forms: My [facility], Smoking Cessation Medications and DC Order Prescriptions: New furosemide 20 mg tablet 20 mg PO DAILY Qty: 30 0RF potassium chloride 10 mEq capsule, extended release 10 meq PO DAILY Qty: 30 0RF Continued Eliquis 5 mg Tablet 5 mg PO BID folic acid 1 mg Tablet 1 mg PO HS Patient Comments: 06/08- otc/last filled 05/20/24 90 day supply rosuvastatin 5 mg Tablet 5 mg PO HS aspirin 81 mg Capsule 81 mg PO QAM Patient Comments: 06/08- otc unable to verify trazodone 50 mg Tablet 100 mg PO HS mecobalamin (vitamin B12) [B12 Active] 1,000 mcg Tablet,Chewable 1,000 mcg PO DAILY Patient Comments: 06/08- otc unable to verify amlodipine 2.5 mg tablet 2.5 mg PO DAILY sotalol 80 mg tablet 80 mg PO BID Discharge Orders: Discharge Order- CHF (Routine); Ordered 06/10/25 Ordered By: Destiny Qiu Admission Data Admit Date/Time: 06/08/25 15:21 Attending Provider: Destiny Qiu I. Admit Provider: Jt Graves Primary Care Provider: Todd Parikh Other Providers: Jt Graves; Nicholas Cherry Other Interventions: Discharge Summary Assessment (RN) Last Done: 06/10/25 11:47
[2025-06-10 11:48] VITALS: BP 136/76
--- NOTE | 2025-06-10 19:46 | Electrocardiogram Report ---
Test Reason : Blood Pressure : */* mmHG Vent. Rate : 70 BPM Atrial Rate : 70 BPM P-R Int : 286 ms QRS Dur : 68 ms QT Int : 440 ms P-R-T Axes : -23 -10 -5 degrees QTcB Int : 475 ms Atrial-paced rhythm with prolonged AV conduction Low voltage QRS Inferior infarct , age undetermined Cannot rule out Anteroseptal infarct , age undetermined T wave abnormality, consider inferior ischemia Abnormal ECG When compared with ECG of 08-Jun-2025 12:06, Electronic atrial pacemaker has replaced Electronic ventricular pacemaker Confirmed by José Miguel Blake ([id number]) on 06/10/2025 7:46:45 PM Referred By: REFERRED SELF Confirmed By: José Miguel Blake
== END 2025-06-10 12:37 | disposition home or self-care (01) | DRG 291 ==
LOC: ED 11:44 → EDINP 15:21 → SUATTDRO 15:21 → 2N 19:10